=== PATIENT | male | born 1935 | race Caucasian/White ===

== ENCOUNTER → 2018-01-05 15:09 | Outpatient (CLI) | payer MEDICARE, SELFPAY ==
[2018-01-05 18:23] LABS: Hematocrit 39.6 % (40-54); Mean Corp Hgb Conc 32.8 g/gl (32-36); Mean Corpuscular Hgb 30.7 pg (27.0-32.0); Mean Corpuscular Volume 93.6 fL (80-94); Mean Platelet Vol. 9.6 fl (6.2-12.0); Platelet Count 322 K/mm3 (150-450); RBC Distribution Width CV 13.6 % (11.6-14.6); RBC Distribution Width SD 46.2 fl (35.1-43.9); Red Blood Count 4.23 M/mm3 (4.6-6.2); White Blood Count 6.2 K/mm3 (4.4-11.0)
[2018-01-05 18:47] LABS: Albumin, Serum 3.2 g/dL (3.2-5.0); BUN 24 mg/dL (7-18); BUN/Creat Ratio 11.8 RATIO (10-20); Calcium,Total 8.2 mg/dL (8.5-10.1); Chloride 107 mmol/L (98-107); Creatinine, Serum 2.04 mg/dL (0.70-1.30); EST Glomerular Filtration Rate 33 mL/min (>60); Est Glom Filt Rate - Afr Amer 40 mL/min (>60); Glucose 114 mg/dL (74-106); Potassium 4.3 mmol/L (3.5-5.1); Sodium Level 140 mmol/L (136-145)
[2018-01-05 18:53] LABS: Scan Indicated on CBC? Y/N NO
[2018-01-05 19:58] LABS: Vitamin D,25 Hydroxy 25.1 ng/mL (19.95-100.01)
== END ==
PROVIDERS: Family Provider Family Medicine; PCP Family Medicine; Visit Provider Internal Medicine Nephrology
DX: N18.3 Chronic kidney disease, stage 3 (moderate) (principal); E55.9 Vitamin D deficiency, unspecified; D64.9 Anemia, unspecified
CPT/HCPCS: 36415; 80069; 82306; 85027

== ENCOUNTER 2018-03-02 22:14 | Emergency (ER) | payer MEDICARE, SELFPAY ==
[2018-03-02 22:15] VITALS: BP 138/89; PULSE 122; RESP 16; TEMP 37.2; O2SAT 96; BMI 30.1
--- NOTE | 2018-03-02 23:07 | ED.DCSUM_ITS ---
- ER Visit Summary Date of Service: 03/02/18 Chief Complaint: [] Badillo catheter obstructed History of Present Illness: The patient is a 82 M stated tonight that his Badillo catheter got obstructed. He has not been able to drain into his leg bag. He has a chronically. He has a sensation like he needs to go because his bladder is filling. He has had this happen before. He has a chronic catheter. This catheter has not been changed for a month. Physical Examination: Vital signs reviewed General: Well-nourished well-developed Head: Normocephalic atraumatic Eyes: Pupils equal round and reactive to light extraocular movements intact ENT: TMs clear no hemotympanum no trauma Neck: Nontender full range of motion Cardiovascular: Regular cardiac rhythm no murmurs normal S1-S2 Respiratory: No distress clear to auscultation bilaterally chest nontender Abdomen: Soft nontender nondistended normal bowel sounds no masses Back: Nontender no CVA tenderness Extremities: Nontender active range of motion ?4 extremities no trauma Skin: Normal color no trauma Neuro alert oriented cranial nerves II through XII intact normal strength sensation reflexes Test Results: [] Emergency Department Course and Treatment: [] Badillo catheter was flushed. Was unsuccessful. It was then changed with good drainage. Patient will follow-up as an outpatient. Treatment Plan: [] Disposition: [] Impression: [] Badillo catheter obstruction This note was generated with [employer] dictation software. It may contain incorrect words, spelling, and punctuation that were not noted in review of the chart prior to signing ED Disposition - Plan for ED Patient: Disposition: Home or Assisted Living Chief Complaint: Badillo C/O Instructions: Discharge Instructions: Caring for Your Indwelling Urinary Catheter Referrals: Alex Pryor MD [STAFF PHYSICIAN] - Alex Gupta MD [Primary Care Provider] -
--- NOTE | 2018-03-02 23:07 | ED.DEP ---
ED Disposition - Plan for ED Patient: Disposition: Home or Assisted Living Chief Complaint: Badillo C/O Instructions: Discharge Instructions: Caring for Your Indwelling Urinary Catheter Referrals: Alex Gupta MD [Primary Care Provider] - Alex Pryor MD [STAFF PHYSICIAN] -
[2018-03-02 23:46] VITALS: RESP 18
--- NOTE | 2018-03-02 23:48 | ED.RN ---
PT DOESNT KNOW MEDS, FAMILY UNAWARE. UNABLE TO COMPLETE
[2018-03-03 00:03] VITALS: PULSE 122; O2SAT 97
== END 2018-03-03 00:04 | disposition home or self-care (01) ==
LOC: ED 23:27
PROVIDERS: Emergency Provider Emergency Medicine; Family Provider Family Medicine; PCP Family Medicine
DX: T83.091A Other mechanical complication of indwelling urethral catheter, initial encounter (principal); I25.10 Atherosclerotic heart disease of native coronary artery without angina pectoris; I10 Essential (primary) hypertension; Z87.440 Personal history of urinary (tract) infections; Z87.438 Personal history of other diseases of male genital organs; Z95.1 Presence of aortocoronary bypass graft; Z79.82 Long term (current) use of aspirin; Z79.899 Other long term (current) drug therapy
CPT/HCPCS: 51702; 99283

== ENCOUNTER → 2018-03-05 16:10 | Outpatient (CLI) | payer MEDICARE, SELFPAY ==
[2018-03-05 18:19] LABS: Anion Gap 8 (5-15); BUN 27 mg/dL (7-18); BUN/Creat Ratio 12.6 RATIO (10-20); Calcium,Total 8.3 mg/dL (8.5-10.1); Chloride 110 mmol/L (98-107); Cholesterol 107 mg/dL (200); Creatinine, Serum 2.15 mg/dL (0.70-1.30); EST Glomerular Filtration Rate 31 mL/min (>60); Est Glom Filt Rate - Afr Amer 38 mL/min (>60); Glucose 101 mg/dL (74-106); High Density Lipoprotein 38 mg/dL; Potassium 4.4 mmol/L (3.5-5.1); Sodium Level 142 mmol/L (136-145); Triglycerides 82 mg/dL; Very Low Density Lipoprotein 16 mg/dL (5-40)
== END ==
PROVIDERS: Family Provider Family Medicine; PCP Family Medicine; Visit Provider Family Medicine
DX: S37.009A Unspecified injury of unspecified kidney, initial encounter (principal); I10 Essential (primary) hypertension
CPT/HCPCS: 36415; 80048; 80061

== ENCOUNTER 2018-04-16 03:05 | Emergency (ER) | payer MEDICARE, SELFPAY ==
[2018-04-16 03:06] VITALS: BP 162/89; PULSE 88; RESP 16; TEMP 36.4; O2SAT 97; BMI 30.4
--- NOTE | 2018-04-16 03:30 | ED.VISSUMM ---
- ER Visit Summary Date of Service: 04/16/18 Chief Complaint: Badillo catheter not draining History of Present Illness: The patient is a 82 M presenting with his Badillo catheter not draining. states it stopped draining before bedtime. She has not noticed any blood or clots in the catheter. This has happened in the past with the last being approximately 1 month ago. That was the last time the catheter was changed. He has a history of chronic catheter. He denies other complaints. Physical Examination: Vitals are stable. Patient is afebrile. Alert no acute distress. HEENT exam is unremarkable. Neck is supple. Lungs are clear and equal bilaterally. Heart is regular rate and rhythm. Abdomen is soft suprapubic tenderness with no rebound or guarding. Extremities are unremarkable. Skin is warm and dry. No focal neurologic deficit. Remainder of exam is unremarkable. Emergency Department Course and Treatment: Badillo catheter was changed. He has improvement of his symptoms. He is advised to follow-up with Dr. Pantoja his urologist. Advised to return to the ED for worsening complaints. Disposition: Discharged home Impression: Badillo catheter change This note was generated with [employer] dictation software. It may contain incorrect words, spelling, and punctuation that were not noted in review of the chart prior to signing ED Disposition - Plan for ED Patient: Chief Complaint: Complaint Instructions: ED Catheter Care Badillo Referrals: Guido Pantoja MD [STAFF PHYSICIAN] - Alex Gupta MD [Primary Care Provider] -
--- NOTE | 2018-04-16 03:57 | ED.DEP ---
ED Disposition - Plan for ED Patient: Chief Complaint: Complaint Instructions: ED Catheter Care Badillo Referrals: Alex Gupta MD [Primary Care Provider] - Guido Pantoja MD [STAFF PHYSICIAN] -
[2018-04-16 04:23] VITALS: BP 101/63; PULSE 69; RESP 17; O2SAT 96
== END 2018-04-16 04:44 | disposition home or self-care (01) ==
LOC: ED 03:40
PROVIDERS: Emergency Provider Emergency Medicine; Family Provider Family Medicine; PCP Family Medicine
DX: Z46.6 Encounter for fitting and adjustment of urinary device (principal); I25.10 Atherosclerotic heart disease of native coronary artery without angina pectoris; I10 Essential (primary) hypertension; E78.00 Pure hypercholesterolemia, unspecified; N40.0 Benign prostatic hyperplasia without lower urinary tract symptoms; Z87.891 Personal history of nicotine dependence; Z79.82 Long term (current) use of aspirin; Z79.899 Other long term (current) drug therapy
CPT/HCPCS: 51702; 99283

== ENCOUNTER 2018-04-17 08:24 | Day surgery (SDC) | payer MEDICARE, SELFPAY ==
[2018-04-17] VITALS (12 sets, daily range): BP systolic 104–122; BP diastolic 61–83; PULSE 47–95; RESP 16–18; TEMP 36.1–36.8; O2SAT 16–100; BMI 29.6
[2018-04-17] MEDS: Cefazolin 2 GM in 0.9% Normal Saline 100 ML IV (10:18)
--- NOTE | 2018-04-17 10:51 | PCM.DC.URO ---
Discharge Diet: No Restrictions, Light diet - advance as tolerated Discharge Activity: Return to Normal Activity Call your doctor if your incision/area has: Continuous Slow Oozing, Sudden Increased Bleeding, Increased Pain/ Swelling, Increased Redness, Foul Smelling Discharge, Swelling at the incision site Allergies/Adverse Reactions: Allergies ciprofloxacin Allergy (Verified 04/16/18 03:08) Itching Medications to take at Discharge Aspirin [Aspirin, Baby] 81 mg PO DAILY@0800 04/22/17 Atorvastatin Calcium 40 mg PO QHS 04/22/17 Cholecalciferol (Vitamin D3) [Vitamin D3] 1,000 unit PO DAILY 04/22/17 Pantoprazole Sodium [Protonix] 20 mg PO DAILY 04/22/17 metoprolol tartrate 25 mg tablet 25 mg PO BID #60 tab 01/23/18 Primary Care Physician: Alex Gupta MD [Primary Care Provider] - Please Follow Up With: Guido Pantoja MD When: please call to make an appointment.
--- NOTE | 2018-04-17 10:57 | OP.PCM_ITS ---
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 I have sent the patient is see a general surgeon to repair this he is refused surgical repair I have explained to the patient that with his chronic obstruction he may end up losing function of this kidneys and may end up on dialysis which could cause significant morbidity and mortality. He has refused to have his hernias repaired. 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 Patient is aware of his refusal to undergo medical treatment is recommended. Also his family is aware of the patient's refusal to undergo recommended medical treatment. He does agree to undergo stent placement to alleviate the obstruction of both kidneys but I expanded him that this may only temporize the situation and he may end up causing permanent dialysis and damage his kidneys even with stents. 82-year-old male taken back to the operating room after smooth induction of anesthesia he was placed supine on the table penis and testicles were prepped and draped in usual sterile fashion on examination he is a very large left inguinal hernia coming down making the scrotum extremely large very difficult to do cystoscopy because of the situation. Went into the bladder with a 21 [place]ander rigid cystourethroscope to the urethra again had the having a fight the hernia the entire time to the procedure as the scope was running against a very large hernia protruding into the field. He did have bilateral hypertrophy of the prostate obstruction, the bladder was heavily trabeculated it is stent emanating from the right side this is grabbed and pulled out the meatus try to put a wire through it but is too stenotic and encrusted so then I went back into the bladder pulled up the stent and put a new wire up on the right side and over the wire place a new stent 6 New Zealander by 28 cm stent. Then inspected the bladder and was able to identify the left ureteral orifice wire went up and then went down into the hernia set back of the kidney along the stent was selected is a 28 cm stent and it would make the turn we will go the way to the kidney stent was left in place then on the left side going from the bladder down to the hernia sac and partially backed up and all the way to the kidney and no other longer stent put in. 1+ once both stents were in place draining the bladder and the patient will go home with a Badillo catheter again he was recommended he undergo repair of his large inguinal hernias this was discussed with the family. He will need a stent change about 6 months. Type of Anesthesia:: General Drains: b/l stents. - Admit VTE Documentation VTE Present on Admission: No VTE Mechan Device Prophylaxis: SCD's VTE Pharm Prophylaxis ordered?: No Reason prophylaxis not ordered:: Treatment Not Indicated
== END 2018-04-17 13:44 | disposition home or self-care (01) ==
LOC: SDC 08:26 → AC 08:27
PROVIDERS: Anesthesiology; Family Provider Family Medicine; PCP Family Medicine; Visit Provider Urology
PROC: (CPT 52332; principal; 2018-04-17 09:45)
DX: N13.5 Crossing vessel and stricture of ureter without hydronephrosis (principal); K40.90 Unilateral inguinal hernia, without obstruction or gangrene, not specified as recurrent; I12.9 Hypertensive chronic kidney disease with stage 1 through stage 4 chronic kidney disease, or unspecified chronic kidney disease; N40.1 Benign prostatic hyperplasia with lower urinary tract symptoms; N13.8 Other obstructive and reflux uropathy; N18.3 Chronic kidney disease, stage 3 (moderate); E78.00 Pure hypercholesterolemia, unspecified; Z79.899 Other long term (current) drug therapy; Z79.82 Long term (current) use of aspirin; Z95.1 Presence of aortocoronary bypass graft; I25.2 Old myocardial infarction; I47.1 Supraventricular tachycardia; Z87.891 Personal history of nicotine dependence; I51.9 Heart disease, unspecified; M19.90 Unspecified osteoarthritis, unspecified site
CPT/HCPCS: 00910; 52332; 36415; 76000; 84484; 93005; J7120; C1769; J2405

== ENCOUNTER 2018-05-15 03:57 | Emergency (ER) | payer MEDICARE, SELFPAY ==
[2018-05-15 03:58] VITALS: BP 158/75; PULSE 92; RESP 18; TEMP 36.9; O2SAT 96; BMI 29.9
--- NOTE | 2018-05-15 04:12 | ED.DEP ---
ED Disposition - Plan for ED Patient: Chief Complaint: Complaint Instructions: ED Catheter Care Badillo Referrals: Alex Gupta MD [Primary Care Provider] - Guido Pantoja MD [STAFF PHYSICIAN] -
[2018-05-15 04:24] LABS: Mucous, Urine 0 SEEN /hpf (<or=2+); Squamous Epithelial Cells - UA 0 SEEN /hpf (0-5)
[2018-05-15 04:26] LABS: Color, Urine Yellow (Yellow); Glucose, Dipstick Normal (Normal); Ketone-Dipstick Negative (Negative); Leukocyte Esterase-Dipstick 500 /ul (Negative); Nitrite-Dipstick Negative (Negative); Occult Blood-Urine 250 /ul (Negative); Protein-Dipstick 100 mg/dl (Negative); Specific Gravity, Urine 1.015 (1.002-1.030); Urine Bilirubin Dipstick Negative (Negative); Urine Clarity Cloudy (Clear); Urine Urobilinogen Normal (Normal)
--- NOTE | 2018-05-15 04:40 | ED.VISSUMM ---
- ER Visit Summary Date of Service: 05/15/18 Chief Complaint: Villa catheter not draining History of Present Illness: The patient is a 83 M presenting with his Villa catheter not draining. states she noted no urine in villa bag last night. She has not noticed any blood or clots in the catheter. This has happened in the past with the last being approximately 1 month ago. That was the last time the catheter was changed. He has a history of chronic catheter. He denies other complaints. Physical Examination: Vitals are stable. Patient is afebrile. Alert no acute distress. HEENT exam is unremarkable. Neck is supple. Lungs are clear and equal bilaterally. Heart is regular rate and rhythm. Abdomen is soft suprapubic tenderness with no rebound or guarding. Extremities are unremarkable. Skin is warm and dry. No focal neurologic deficit. Remainder of exam is unremarkable. Emergency Department Course and Treatment: Villa catheter was changed. He has improvement of his symptoms. Urine culture is sent. Urinalysis shows over 100 white blood cells. He is given Keflex and a prescription for Keflex. He is advised to follow-up with Dr. Pantoja his urologist. Advised to return to the ED for worsening complaints. Disposition: Discharged home Impression: Villa catheter change, UTI This note was generated with [employer] dictation software. It may contain incorrect words, spelling, and punctuation that were not noted in review of the chart prior to signing ED Disposition - Plan for ED Patient: Chief Complaint: Complaint Instructions: ED Catheter Care Villa, ED UTI Cystitis Male Prescriptions: Cephalexin [Keflex] 500 mg PO Q6 #40 capsule Referrals: uGido Pantoja MD [STAFF PHYSICIAN] - Alex Gupta MD [Primary Care Provider] -
[2018-05-15 04:49] LABS: Bacteria 3+ /hpf (None Seen); Red Blood Cells-Urine 0-5 SEEN /hpf (0-5); White Blood Cells >100 SEEN /hpf (0-5)
--- NOTE | 2018-05-15 04:50 | ED.DEP ---
ED Disposition - Plan for ED Patient: Chief Complaint: Complaint Instructions: ED Catheter Care Badillo, ED UTI Cystitis Male Prescriptions: Cephalexin [Keflex] 500 mg PO Q6 #40 capsule Referrals: Guido Pantoja MD [STAFF PHYSICIAN] - Alex Gupta MD [Primary Care Provider] -
[2018-05-15] MEDS: Cephalexin 250 MG Capsule 500 MG PO (04:53)
[2018-05-15 05:00] VITALS: RESP 18
--- NOTE | 2018-05-18 09:20 | ED.RN ---
PRESCRIPTIONS FOR BACTRIM DS AND MACROBID WERE CALLED INTO [facility]. PT WAS THEN NOTIFIED OF SAME.
== END 2018-05-15 05:01 | disposition home or self-care (01) ==
LOC: ED 04:18
PROVIDERS: Emergency Provider Emergency Medicine; Family Provider Family Medicine; PCP Family Medicine
DX: Z46.6 Encounter for fitting and adjustment of urinary device (principal); N39.0 Urinary tract infection, site not specified; K21.9 Gastro-esophageal reflux disease without esophagitis; I10 Essential (primary) hypertension; E78.00 Pure hypercholesterolemia, unspecified; Z79.82 Long term (current) use of aspirin; Z79.899 Other long term (current) drug therapy
CPT/HCPCS: 51702; 81001; 87077; 87086; 87088; 87186; 99284

== ENCOUNTER 2018-06-26 02:57 | Emergency (ER) | payer MEDICARE, SELFPAY ==
[2018-06-26 02:57] VITALS: BP 134/80; PULSE 71; RESP 20; TEMP 36.8; O2SAT 97; BMI 29.6
--- NOTE | 2018-06-26 03:30 | ED.VISSUMM ---
- ER Visit Summary Date of Service: 06/26/18 Chief Complaint: [] Catheter blocked History of Present Illness: The patient is a 83 M [] patient stated that his Badillo catheter got blocked tonight. He is not having any pain. It has been in for 2 months. He has a chronic Badillo catheter for last 2 years secondary to outlet obstruction. Comes in to have his Badillo catheter checked. Physical Examination: [] Vital signs reviewed General: Well-nourished well-developed Head: Normocephalic atraumatic Eyes: Pupils equal round and reactive to light extraocular movements intact ENT: TMs clear no hemotympanum no trauma Neck: Nontender full range of motion Cardiovascular: Regular rate rhythm no murmurs normal S1-S2 Respiratory: No distress clear to auscultation bilaterally chest nontender Abdomen: Soft nontender nondistended normal bowel sounds no masses Back: Nontender no CVA tenderness Extremities: Nontender active range of motion ?4 extremities no trauma Skin: Normal color no trauma Neuro alert oriented cranial nerves II through XII intact normal strength sensation reflexes Test Results: [] Emergency Department Course and Treatment: [] Badillo is blocked. It was removed and a new one was placed with good flow. He will be discharged Treatment Plan: [] Disposition: [] Impression: [] Badillo catheter obstruction This note was generated with [employer] dictation software. It may contain incorrect words, spelling, and punctuation that were not noted in review of the chart prior to signing ED Disposition - Plan for ED Patient: Chief Complaint: Badillo C/O Referrals: Alex Gupta MD [Primary Care Provider] -
--- NOTE | 2018-06-26 03:31 | ED.DEP ---
ED Disposition - Plan for ED Patient: Disposition: Home or Assisted Living Chief Complaint: Badillo C/O Instructions: Discharge Instructions: Caring for Your Indwelling Urinary Catheter Referrals: Alex Gupta MD [Primary Care Provider] -
[2018-06-26 03:48] VITALS: BP 134/80; PULSE 71; RESP 20; O2SAT 97
== END 2018-06-26 03:49 | disposition home or self-care (01) ==
PROVIDERS: Emergency Provider Emergency Medicine; Family Provider Family Medicine; PCP Family Medicine
DX: T83.098A Other mechanical complication of other urinary catheter, initial encounter (principal)
CPT/HCPCS: 51702; 99283

== ENCOUNTER 2018-08-19 00:53 | Emergency (ER) | payer MEDICARE, SELFPAY ==
[2018-08-19 00:54] VITALS: BP 130/53; PULSE 41; RESP 16; TEMP 36.4; O2SAT 96; BMI 33.6
--- NOTE | 2018-08-19 01:34 | ED.VISSUMM ---
- ER Visit Summary Date of Service: 08/19/18 Chief Complaint: Catheter not draining History of Present Illness: The patient is a 83 M who presents due to a Badillo catheter not draining. He has a chronic indwelling Badillo. Over the last 4 hours he complains of increasing suprapubic aching and pressure and has noted that his catheter is not been draining normally for the past 4 hours. He otherwise denies recent illness. No fevers nausea vomiting. Physical Examination: Afebrile bradycardic but vitals otherwise unremarkable Moist mucous membranes Heart regular Lungs clear Abdomen soft he has some mild suprapubic tenderness Alert Test Results: Not indicated Emergency Department Course and Treatment: Badillo catheter was changed. He has had about 600 cc of urine out. He feels much better. He will be discharged to follow-up with his urologist. Treatment Plan: [] Disposition: Discharge Impression: Badillo catheter malfunction and change This note was generated with [employer] dictation software. It may contain incorrect words, spelling, and punctuation that were not noted in review of the chart prior to signing ED Disposition - Plan for ED Patient: Chief Complaint: Badillo C/O Referrals: Alex Gupta MD [Primary Care Provider] -
--- NOTE | 2018-08-19 01:36 | ED.DEP ---
ED Disposition - Plan for ED Patient: Chief Complaint: Badillo C/O Instructions: ED Catheter Care Badillo Referrals: Alex Gupta MD [Primary Care Provider] -
[2018-08-19 02:08] VITALS: BP 136/82; PULSE 53; RESP 16; O2SAT 98
== END 2018-08-19 02:09 | disposition home or self-care (01) ==
PROVIDERS: Emergency Provider Emergency Medicine; Family Provider Family Medicine; PCP Family Medicine
DX: T83.098A Other mechanical complication of other urinary catheter, initial encounter (principal); N50.89 Other specified disorders of the male genital organs; K21.9 Gastro-esophageal reflux disease without esophagitis; I10 Essential (primary) hypertension; E78.00 Pure hypercholesterolemia, unspecified; Z79.82 Long term (current) use of aspirin; Z79.899 Other long term (current) drug therapy
CPT/HCPCS: 51702; 99283

== ENCOUNTER → 2018-09-07 16:14 | Outpatient (CLI) | payer MEDICARE, SELFPAY ==
[2018-09-07 17:38] LABS: Anion Gap 7 (5-15); BUN 20 mg/dL (7-18); BUN/Creat Ratio 9.2 RATIO (10-20); Chloride 109 mmol/L (98-107); Creatinine, Serum 2.18 mg/dL (0.70-1.30); EST Glomerular Filtration Rate 31 mL/min (>60); Est Glom Filt Rate - Afr Amer 37 mL/min (>60); Glucose 126 mg/dL (74-106); Potassium 4.2 mmol/L (3.5-5.1); Sodium Level 141 mmol/L (136-145)
== END ==
PROVIDERS: Family Provider Family Medicine; PCP Family Medicine; Visit Provider Family Medicine
DX: I10 Essential (primary) hypertension (principal)
CPT/HCPCS: 36415; 80048

== ENCOUNTER → 2018-09-28 17:24 | Outpatient (CLI) | payer MEDICARE, SELFPAY | PROVIDERS: Family Provider Family Medicine; PCP Family Medicine; Referring Provider Nurse Practitioner Adult Health; Visit Provider Nurse Practitioner Adult Health | DX: N32.89 Other specified disorders of bladder (principal) | CPT/HCPCS: 87077; 87086; 87088; 87186 ==

== ENCOUNTER 2018-10-28 10:11 | Day surgery (SDC) | payer MEDICARE, SELFPAY ==
[2018-10-22 14:06] VITALS: BMI 28.6
[2018-10-28] VITALS (7 sets, daily range): BP systolic 110–134; BP diastolic 56–74; PULSE 52–67; RESP 16–18; TEMP 36–36.4; O2SAT 96–99; BMI 28.6
[2018-10-28] MEDS: Cefazolin 2 GM in 0.9% Normal Saline 100 ML IV (12:37)
--- NOTE | 2018-10-28 13:17 | DCINST_ITS ---
Discharge Activity: Return to Normal Activity Allergies/Adverse Reactions: Allergies ciprofloxacin Allergy (Verified 10/22/18 14:14) Itching Medications to take at Discharge Atorvastatin Calcium 40 mg PO QHS 04/22/17 Cholecalciferol (Vitamin D3) [Vitamin D3] 1,000 unit PO DAILY 04/22/17 Pantoprazole Sodium [Protonix] 20 mg PO DAILY 04/22/17 Iron Polysaccharide Complex [Ferrex 150] 150 mg PO DAILYCM 10/21/18 Metoprolol Tartrate [Lopressor (beta mao)] 25 mg PO BID 10/21/18 Tamsulosin HCl [Flomax] 0.4 mg PO DAILY 10/21/18 Primary Care Physician: Alex Gupta MD [Primary Care Provider] - Test Results: Test results from this visit will be discussed in further detail at your follow- up appointment, if applicable. Please Follow Up With: Guido Pantoja MD When: in 2 weeks, please call to make an appointment.
--- NOTE | 2018-10-28 13:17 | PCM.OPRPT ---
Report of Operation Date of Procedure: 10/28/18 Pre-Operative Diagnosis: Bilateral hydronephrosis and obstruction of the kidneys secondary to large inguinal herniation Post-Operative Diagnosis: Same Surgery/Procedure Performed:: Cystoscopy right stent change, left stent change. 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 Today he returns to the operating room for a 6-month stent change in a 6-month catheter change at the same time. Patient was taken back to the operating room at the smooth induction of general anesthesia was placed supine on the table in dorsal lithotomy position, the penis and testicles are prepped and draped in usual sterile fashion, he had a very large inguinal hernia protruding into the very large scrotum making it quite difficult to do cystoscopy. We went into the urethra with a 21 Israeli rigid cystourethroscope the entire length the urethra is normal the prostate was very large obstructive prostate, I then identified the right ureteral orifice grabbed a stent pulled out the meatus try to wipe put a wire through both to encrusted so then took it all the way up went back in the bladder and then cannulated the right ureteral orifice and advanced this wire up to the kidney and then place a stent on the right side. Once a stent was placed in the right side then we went to the left side the left side was even more difficult the ureter goes down into this inguinal hernia and then back up into the kidney I was able to grab the existing stent pulled out the meatus then went back into the bladder very difficult angle to work with so I did use a 70 degree lens and a L bronze bridge to the deflect the wire right into the ureter at a very weird angle I advanced a wire through this 60 the wire go down to the scrotum the back up to the kidneys then over the wire advanced a 6 Israeli by 28 cm stent once a stent was in good position and pulled the wire the stent coiled in the bladder but it was going down to the inguinal area this allowed the ureter to stay open and drain on that side we then put a catheter into the bladder patient anesthetic was reversed and a quick see him in a few weeks for checkup he will need another stent change about 6 months. Type of Anesthesia:: General Drains: left and right stent - Admit VTE Documentation VTE Present on Admission: No
== END 2018-10-28 15:35 | disposition home or self-care (01) ==
LOC: SDC 10:12 → AC 10:15
PROVIDERS: Family Provider Family Medicine; PCP Family Medicine; Referring Provider Urology; Visit Provider Urology
PROC: (CPT 52332; principal; 2018-10-28 12:10)
DX: N13.30 Unspecified hydronephrosis (principal); K40.90 Unilateral inguinal hernia, without obstruction or gangrene, not specified as recurrent; N18.3 Chronic kidney disease, stage 3 (moderate); K21.9 Gastro-esophageal reflux disease without esophagitis; E78.00 Pure hypercholesterolemia, unspecified; I12.9 Hypertensive chronic kidney disease with stage 1 through stage 4 chronic kidney disease, or unspecified chronic kidney disease; I47.1 Supraventricular tachycardia; I25.2 Old myocardial infarction; I25.10 Atherosclerotic heart disease of native coronary artery without angina pectoris; Z95.1 Presence of aortocoronary bypass graft; Z79.899 Other long term (current) drug therapy; M19.90 Unspecified osteoarthritis, unspecified site; N40.1 Benign prostatic hyperplasia with lower urinary tract symptoms; R33.8 Other retention of urine
CPT/HCPCS: 52332; 76000; J7120; C1769; J2405

== ENCOUNTER 2019-01-12 23:21 | Emergency (ER) | payer MEDICARE, SELFPAY ==
[2018-10-28 10:42] VITALS: BMI 28.6
[2019-01-12 23:22] VITALS: BP 142/86; PULSE 72; RESP 18; TEMP 36.5; O2SAT 97; BMI 31.8
--- NOTE | 2019-01-12 23:41 | ED.RN ---
repositioned catheter into bladder fully. immediate drainage and pain relief. 400 ml removed from leg bag, still draining.
--- NOTE | 2019-01-12 23:50 | ED.DEP ---
ED Disposition - Plan for ED Patient: Instructions: Discharge Instructions: Caring for Your Indwelling Urinary Catheter Referrals: Alex Gupta MD [Primary Care Provider] -
--- NOTE | 2019-01-13 00:06 | ED.VISSUMM ---
- ER Visit Summary Date of Service: 01/13/19 Chief Complaint: Badillo catheter problem History of Present Illness: The patient is a 83 M presenting with Badillo catheter problem. Patient had a Badillo catheter placed as an outpatient today. He states it was not draining at home tonight. He denies other complaints. Physical Examination: Vitals are stable. Patient is afebrile. Alert no acute distress. HEENT exam is unremarkable. Neck is supple. Lungs are clear and equal bilaterally. Heart is regular rate and rhythm. Abdomen is soft nontender nondistended. Extremities are unremarkable. Skin is warm and dry. Remainder of exam is unremarkable. Emergency Department Course and Treatment: On arrival patient's Badillo catheter was repositioned by nursing. It is now draining clear yellow urine. He has no blood in the Badillo bag. He feels improved. He is advised to follow-up with his urologist. Advised return to ED for worsening complaints. Disposition: Discharge home Impression: Badillo catheter problem This note was generated with [employer] dictation software. It may contain incorrect words, spelling, and punctuation that were not noted in review of the chart prior to signing ED Disposition - Plan for ED Patient: Instructions: Discharge Instructions: Caring for Your Indwelling Urinary Catheter Referrals: Alex Gupta MD [Primary Care Provider] -
== END 2019-01-13 00:15 | disposition home or self-care (01) ==
LOC: ED 01-13 00:11
PROVIDERS: Emergency Provider Emergency Medicine; Family Provider Family Medicine; PCP Family Medicine
DX: Z46.6 Encounter for fitting and adjustment of urinary device (principal); I12.9 Hypertensive chronic kidney disease with stage 1 through stage 4 chronic kidney disease, or unspecified chronic kidney disease; N18.9 Chronic kidney disease, unspecified; E78.00 Pure hypercholesterolemia, unspecified; Z79.899 Other long term (current) drug therapy
CPT/HCPCS: 99282

== ENCOUNTER 2019-03-02 03:54 | Emergency (ER) | payer MEDICARE, SELFPAY ==
[2019-03-02 03:55] VITALS: BP 148/82; PULSE 81; RESP 18; TEMP 36.6; O2SAT 97; BMI 29.1
[2019-03-02 04:00] VITALS: RESP 18
--- NOTE | 2019-03-02 04:05 | ED.VISSUMM ---
- ER Visit Summary Date of Service: 03/02/19 Chief Complaint: Badillo catheter not draining History of Present Illness: The patient is a 83 M with a chronic indwelling Badillo catheter who presents because it is not been draining. Patient states it is been since he went to bed since it last drained urine, which was several hours ago. Patient denies any pain but states it annoys him. He denies any fever, abdominal pain, blood in his urine. He states the Badillo catheter gets clogged once in a while. Physical Examination: Patient is afebrile and hemodynamically stable. Well-nourished well-developed sitting in bed in no distress. Abdomen is soft and nontender. Patient has a very large edematous scrotum with erythema along the right intertriginous region. Badillo catheter is inserted into the penis without any purulent drainage or blood at the urethral meatus. The drainage bag is empty. Remainder of exam is unremarkable. Test Results: Abnormal Lab Results 03/02/19 04:20 Urine Color Yellow Urine Clarity Cloudy Urine pH 8.0 Ur Specific [place] 1.010 Urine Protein 100 H Urine Glucose (UA) Normal Urine Ketones Negative Urine Occult Blood 250 H Urine Nitrite Negative Urine Bilirubin Negative Urine Urobilinogen Normal Ur Leukocyte Esterase 500 H Urine RBC 10-25 SEEN Urine WBC >100 SEEN Ur Squamous Epith Cells 0 SEEN Urine Bacteria 0 SEEN Urine Mucus 0 SEEN Medications Given Discontinued Medications Cephalexin (Keflex) 500 mg PO X1 ONE Stop: 03/02/19 05:03 Last Admin: 03/02/19 05:09 Dose: 500 mg Emergency Department Course and Treatment: Nursing staff attempted to flush the Badillo catheter, however they were unable to pass any sterile saline through the Badillo. Thus it was replaced and a large volume of cloudy yellow urine was drained easily. Patient instantly felt much better. Because of the areas of intertrigo between his scrotum and thighs, he was prescribed nystatin powder. Urinalysis was positive for UTI in the urine that had been retained in his bladder. Patient may have chronic bacteriuria and pyuria given the chronic indwelling Badillo, however because of the Badillo catheter obstruction in conjunction with the positive urinalysis, it was treated with Keflex dosed for complicated UTI. Patient was discharged home with return precautions. Treatment Plan: [] Disposition: [] Impression: Badillo catheter obstruction, Badillo catheter replacement, complicated UTI, inguinal intertrigo This note was generated with [employer] dictation software. It may contain incorrect words, spelling, and punctuation that were not noted in review of the chart prior to signing ED Disposition - Plan for ED Patient: Disposition: Home or Assisted Living Instructions: ED Catheter Care Badillo, ED Candidiasis Cutaneous, ED UTI Cystitis Male Prescriptions: Cephalexin [Keflex] 500 mg PO Q6 #28 cap Nystatin Powder [Mycostatin Powder] 1 applic TOPICAL BID 14 Days #1 bottle Referrals: Alex Gputa MD [Primary Care Provider] - 3-5 Days if not improving Additional Instructions: Your Badillo catheter was replaced. The urine that had been trapped in your bladder tested positive for infection. Please take the antibiotic 4 times daily for 1 week. You have also been prescribed nystatin powder to use in the creases between your groin and your thighs to help with the yeast infection. Follow-up with your doctor in 2 weeks if you are not seeing improvement. If you have any worsening of your condition or any new concerning symptoms, please return immediately to the emergency department for another evaluation.
--- NOTE | 2019-03-02 04:24 | ED.RN ---
ATTEMPTED TO FLUSH GERMAIN, UNABLE TO FLUSH. DR. ZHONG NOTIFIED. NEW GERMAIN INSERTED.
[2019-03-02 04:29] LABS: Bacteria 0 SEEN /hpf (None Seen); Mucous, Urine 0 SEEN /hpf (<or=2+); Squamous Epithelial Cells - UA 0 SEEN /hpf (0-5)
[2019-03-02 04:47] LABS: Color, Urine Yellow (Yellow); Glucose, Dipstick Normal (Normal); Ketone-Dipstick Negative (Negative); Leukocyte Esterase-Dipstick 500 /ul (Negative); Nitrite-Dipstick Negative (Negative); Occult Blood-Urine 250 /ul (Negative); Protein-Dipstick 100 mg/dl (Negative); Urine Bilirubin Dipstick Negative (Negative); Urine Clarity Cloudy (Clear); Urine Urobilinogen Normal (Normal)
[2019-03-02 04:54] LABS: Red Blood Cells-Urine 10-25 SEEN /hpf (0-5); White Blood Cells >100 SEEN /hpf (0-5)
[2019-03-02] MEDS: Cephalexin 250 MG Capsule 500 MG PO (05:09)
[2019-03-02 05:12] VITALS: BP 119/68; PULSE 79; RESP 16; TEMP 36.8; O2SAT 97
[2019-03-02 05:14] VITALS: BP 119/68; PULSE 79; RESP 16; O2SAT 97
== END 2019-03-02 05:26 | disposition home or self-care (01) ==
PROVIDERS: Emergency Provider Emergency Medicine; Family Provider Family Medicine; PCP Family Medicine
DX: N39.0 Urinary tract infection, site not specified (principal); T83.098A Other mechanical complication of other urinary catheter, initial encounter; Y73.8 Miscellaneous gastroenterology and urology devices associated with adverse incidents, not elsewhere classified; L30.4 Erythema intertrigo
CPT/HCPCS: 51702; 81001; 87077; 87086; 87088; 87186; 99283

== ENCOUNTER → 2019-03-03 14:50 | Outpatient (CLI) | payer MEDICARE, SELFPAY ==
[2019-03-02 03:55] VITALS: BMI 29.1
[2019-03-03 16:41] LABS: Anion Gap 6 (5-15); BUN 23 mg/dL (7-18); BUN/Creat Ratio 10.8 RATIO (10-20); Calcium,Total 7.8 mg/dL (8.5-10.1); Chloride 111 mmol/L (98-107); Cholesterol 143 mg/dL (200); Creatinine, Serum 2.13 mg/dL (0.70-1.30); EST Glomerular Filtration Rate 32 mL/min (>60); Est Glom Filt Rate - Afr Amer 38 mL/min (>60); Glucose 127 mg/dL (74-106); High Density Lipoprotein 39 mg/dL; PSA,Total - Annual Screen 5.86 ng/mL (0.00-4.00); Potassium 4.3 mmol/L (3.5-5.1); Sodium Level 140 mmol/L (136-145); Triglycerides 87 mg/dL; Very Low Density Lipoprotein 17 mg/dL (5-40)
[2019-03-03 19:37] LABS: Vitamin D,25 Hydroxy 32.9 ng/mL (29.95-100.01)
== END ==
PROVIDERS: Family Provider Family Medicine; PCP Family Medicine; Referring Provider Family Medicine; Visit Provider Family Medicine
DX: Z00.00 Encounter for general adult medical examination without abnormal findings (principal); E55.9 Vitamin D deficiency, unspecified; Z12.5 Encounter for screening for malignant neoplasm of prostate
CPT/HCPCS: 36415; 80048; 80061; 82306; 84153; G0103

== ENCOUNTER 2019-06-04 05:57 | Day surgery (SDC) | payer MEDICARE, SELFPAY ==
[2019-04-28 14:13] VITALS: BMI 28.0
[2019-06-04] VITALS (8 sets, daily range): BP systolic 88–106; BP diastolic 59–65; PULSE 65–70; RESP 14–16; TEMP 36.2–36.4; O2SAT 91–96; BMI 28.1
--- NOTE | 2019-06-04 07:26 | PCM.DC.URO ---
Discharge Diet: Light diet - advance as tolerated Discharge Activity: Return to Normal Activity Call your doctor if your incision/area has: Sudden Increased Bleeding Call your doctor if you observe: Fever of 101 or Higher Suture Line Care: Avoid Pulling/Pushing, Avoid Pinching/Bending Catheter: Badillo to leg bag, Badillo to large bag Drain: [place] Allergies/Adverse Reactions: Allergies ciprofloxacin Allergy (Verified 06/04/19 06:16) Itching Medications to take at Discharge Atorvastatin Calcium 40 mg PO QHS 04/22/17 Cholecalciferol (Vitamin D3) [Vitamin D3] 1,000 unit PO DAILY 04/22/17 Pantoprazole Sodium [Protonix] 20 mg PO DAILY 04/22/17 Iron Polysaccharide Complex [Ferrex 150] 150 mg PO DAILYCM 10/21/18 metoprolol tartrate 25 mg tablet 25 mg PO BID #180 tab 02/01/19 Cephalexin [Keflex] 500 mg PO Q8 #15 cap 06/04/19 The following prescriptions were given: Cephalexin [Keflex] 500 mg PO Q8 #15 cap Prescription Printed Primary Care Physician: Alex Gupta MD [Primary Care Provider] - Test Results: Test results from this visit will be discussed in further detail at your follow-up appointment, if applicable. Please Follow Up With: Guido Pantoja MD When: FOLLOW UP IN 6 MONTHS.
[2019-06-04] MEDS: Cefazolin 2 GM in 0.9% Normal Saline 100 ML IV (07:27)
[2019-06-04] MEDS: Lubricating Jelly 60 GM Tube 30 GM TOPICAL (07:49)
--- NOTE | 2019-06-04 07:59 | PCM.OPRPT ---
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 Chronic stents need to be changed. Post-Operative Diagnosis: The same Surgery/Procedure Performed:: Cystoscopy and bilateral stent changes bilateral retrograde pyelograms and interpretation of fluoroscopic images Description of Surgical Findings:: 84-year-old male who has a history of a very large retroperitoneal hernia this is causing herniation and an angulation of the ureter on the left side with chronic hydronephrosis we have tried to manage this now with chronic stents on the left side and also the right side is involved but not as much. He has had stents now for 6 months he is due for another change. He is refused surgery to repair the large hernia. He also has BPH with obstruction and urinary retention is refused surgery for his prostate and at this point probably has chronic retention. So today we plan to do a cystoscopy and bilateral stent changes will put a catheter back in at the end of the case. 84-year-old male was taken back to the OR 3, he underwent sedation and MAC local with anesthesia with Dr. Laura. He was placed supine on the table and after sedation we remove the Badillo catheter was in place and we took off the large depends. We then moved him down on the table put his legs in stirrups making sure he was properly positioned and padded. After putting the legs in stirrups on exam he can see the uncircumcised penis was normal he had a very large scrotum on the left side with a retroperitoneal hernia. He is refused surgical repair of this. Herniating into the scrotum and also some on the right side. This is a chronic herniation after the penis and testicles are prepped and draped in usual sterile fashion I then went into the urethra with a 21 Maur[place] rigid cystourethroscope using a 30 degree lens. The entire length urethra was normal meatus was normal pendulous urethra normal bulbar urethra is normal I then turned into the prostate prostate had significant obstruction bilaterally and a very large high riding bladder neck once inside the bladder identified the left stent as emanating from the patient's left side. I grabbed the existing stent and pulled out the meatus was able to get a wire through the stent fortunately and then was unable to get the wire to go into the ureter and coiled down into the herniation and then backed up very unusual position for the stent as it angled down into the hernia I was going into the patient's scrotum on the left side once the wire was in place and I pulled the stent over the wire backloaded off then very carefully advanced a new stent it was a 6 Mauritian by 28 cm stent on the left side pushes stent and left the string on the stent and then once a stent with good position and pulled the wire and then cut the string try to position the stent with a string but the string coiled and then pulled the stent out further so then I had to cut the string off advanced a wire to the stent again this was done from the meatus fortunately the stent did not come out of the ureteral orifice and went up on the left side and back back down into the herniation sac and then under direct visualization I advanced the stent into the bladder and the stent went into the ureter on the left side and then once stent was a good position I pulled the wire and the stent coiled in the bladder and in the hernia sac stent does not reach the kidney because of the large herniation. Then I went into the bladder and grabbed the existing stent on the right side I pulled out the meatus put a wire through it initially the wire would go into the first coil and is going to the middle of the stent but would not go past the second coil as it is completely encrusted tried several times to get the wire through but it was not able to. I then put a snap in the stent and then the stent fell out on the right side fortunately is able to find the ureteral orifice it was a lot of bullous edema around the orifice was able to identify it put a wire and then advanced a wire up into the right kidney over the wire in place [place] catheter rigid retrograde pyelogram and then once in position then I put the wire back up and then advanced a 6 Mauritian by 28 cm stent on that right side once a stent was in good position I pulled the wire the stent coiled in the kidney bladder good position. I then removed the cystoscope we then placed a 16 Mauritian catheter into the bladder to a leg bag. The patient was then taken back to PACU in stable condition he will be discharged home with 5 days of Keflex as a prophylactic against an infection and he will go home with a catheter we can see him in 6 months in the office and plan for another stent change in about 6 months. I will go talk to the family regarding the findings. Type of Anesthesia:: General Anesthesiologist: Abran Laura Drains: stent bilateral 6fr x 28cm Estimated Blood Loss (mL): none Fluids Replaced: none - Complications none - Admit VTE Documentation VTE Present on Admission: No VTE Mechan Device Prophylaxis: SCD's
--- NOTE | 2019-06-04 09:57 | SUR.PHASEII ---
patient and family notified confirmed bed bug found on patient bed. informed to notify vicky.
--- NOTE | 2019-06-04 09:58 | SUR.PHASEII ---
when assisting pt with getting dressed a bed bug was seen crawling away from the patient. it was collected in a specimen cup. charge nurse notified. environmental services notified.
--- NOTE | 2019-06-07 07:37 | HP.PCM_ITS ---
History and Physical Date of Admission: 06/04/19 84-year-old male here for villa catheter change. Last changed 03/02/19 in ER when it was obstructed. He has a poorly functioning large bladder, large prostate causing obstruction, has chronic villa catheter, bilateral renal obstruction from very large inguinal hernias, chronic ureteral stents. Stents were last changed 10/28/19, plan is to change them every 6 mos. As for the villa, he has agreed to having it changed every 2 mos. ALLERGIES: None MEDICATIONS: Atorvastatin Calcium 40 mg tablet Ferrex 150 Metoprolol Tartrate 25 mg tablet Pantoprazole Sodium Vitamin D3 PSH: Cysto Remove Stent FB Com - 11/16/2016 Cystoscopy Insert Stent, Right - 10/28/2018, Left - 10/28/2018, 04/17/2018, 10/10/2017, 2017 Insert Bladder Cath; Complex - 07/21/2017, 05/19/2017 PSH Notes: Pt has not had a colonoscopy NON- PSH: Coronary Artery Bypass Grafting Patient documented to have received pneumococcal vaccination Pneumococcal Vaccine Admin PMH: Benign prostatic hyperplasia with lower urinary tract symptoms - 09/22/2017, - 07/21/2017, - 05/19/2017, - 2016, - 2016 Other hydronephrosis - 09/22/2017, - 07/21/2017, - 05/19/2017, - 2016, - 2016 Other retention of urine - 09/22/2017, - 07/21/2017, - 05/19/2017, - 2016, - 2016 Frequency of micturition NON- PMH: Essential (primary) hypertension Heart disease, unspecified Unspecified hearing loss, unspecified ear Unspecified osteoarthritis, unspecified site FAMILY HISTORY: None SOCIAL HISTORY: Marital Status: Preferred Language: Kittitian; Ethnicity: Not Or ; Race: White Current Smoking Status: Patient has never smoked. Does not use smokeless tobacco. Has never drank. Does not use drugs. Drinks 1 caffeinated drink per day. Has not had a blood transfusion. REVIEW OF SYSTEMS: Constitutional: Patient denies fever and chills. VITAL SIGNS: 04/27/2019 03:28 PM Weight 180 lb / 81.65 kg Height 69 in / 175.26 cm BP 128/78 mmHg BMI 26.6 kg/m? MULTI-SYSTEM PHYSICAL EXAMINATION: Notes: Frail elderly male. No distress. Urine in leg bag is yellow, cloudy. PAST DATA REVIEWED: Source Of History: Patient Records Review: Previous Patient Records PROCEDURES: Catheter / SP Tube - 21403 Simple Villa Catheterization A 18 [place] Villa catheter was inserted into the bladder using sterile technique. The patient was taught routine catheter care. A leg bag was connected. ASSESSMENT: ICD-10 Details 1 : Other retention of urine - R33.8 2 Other hydronephrosis - N13.39 PLAN: Document Letter(s): Created for Patient: Clinical Summary Notes: Due for cysto bilat ureteral stent change, that will be scheduled.
== END 2019-06-04 10:01 | disposition home or self-care (01) ==
LOC: SDC 05:59 → AC 06:01
PROVIDERS: Family Provider Family Medicine; PCP Family Medicine; Referring Provider Urology; Visit Provider Urology
PROC: (CPT 910; principal; 2019-06-04 07:20)
DX: K45.8 Other specified abdominal hernia without obstruction or gangrene (principal); E78.00 Pure hypercholesterolemia, unspecified; K21.9 Gastro-esophageal reflux disease without esophagitis; Z79.899 Other long term (current) drug therapy; I25.2 Old myocardial infarction; I10 Essential (primary) hypertension; Z87.891 Personal history of nicotine dependence; N40.1 Benign prostatic hyperplasia with lower urinary tract symptoms; N13.8 Other obstructive and reflux uropathy; M19.90 Unspecified osteoarthritis, unspecified site; I25.10 Atherosclerotic heart disease of native coronary artery without angina pectoris; N13.39 Other hydronephrosis
CPT/HCPCS: 00910; 52332; 76000; J7120; C1769; C2625; J2405

== ENCOUNTER 2019-06-05 05:20 | Emergency (ER) | payer MEDICARE, SELFPAY ==
[2019-06-04 06:18] VITALS: BMI 28.1
[2019-06-05 05:21] VITALS: BP 152/82; PULSE 55; RESP 18; TEMP 36.6; O2SAT 95; BMI 28.1
--- NOTE | 2019-06-05 05:39 | ED.VISSUMM ---
- ER Visit Summary Date of Service: 06/05/19 Chief Complaint: Badillo fell out History of Present Illness: The patient is a 84 M who presents because his Badillo fell out. He has had an indwelling Badillo for many years. He complains of suprapubic pressure over the last couple of hours. Badillo catheter was placed prior to my evaluation and he already had significant relief. Physical Examination: Afebrile vitals unremarkable No distress Heart regular rate and rhythm Lungs clear Abdomen soft Alert Test Results: Not indicated Emergency Department Course and Treatment: Badillo was replaced without any immediate complication. Patient had about 800 cc of light yellow urine out. He has no further complaints. He was discharged to follow-up with urology as needed. Treatment Plan: [] Disposition: Discharge Impression: Badillo placement This note was generated with [employer] dictation software. It may contain incorrect words, spelling, and punctuation that were not noted in review of the chart prior to signing ED Disposition - Plan for ED Patient: Referrals: Alex Gupta MD [Primary Care Provider] -
--- NOTE | 2019-06-05 05:41 | ED.DEP ---
ED Disposition - Plan for ED Patient: Instructions: Badillo Catheter, Care Referrals: Alex Gupta MD [Primary Care Provider] -
== END 2019-06-05 05:56 | disposition home or self-care (01) ==
LOC: ED 05:46
PROVIDERS: Emergency Provider Emergency Medicine; Family Provider Family Medicine; PCP Family Medicine
DX: Z46.6 Encounter for fitting and adjustment of urinary device (principal); K21.9 Gastro-esophageal reflux disease without esophagitis; I10 Essential (primary) hypertension; E78.00 Pure hypercholesterolemia, unspecified; Z79.899 Other long term (current) drug therapy
CPT/HCPCS: 51702; 99284

== ENCOUNTER 2019-07-13 17:50 | Emergency (ER) | payer MEDICARE, SELFPAY ==
[2019-07-13 17:51] VITALS: BP 134/75; PULSE 44; RESP 16; TEMP 35.6; BMI 27.4
--- NOTE | 2019-07-13 17:59 | ED.DCSUM_ITS ---
History of Present Illness Chief Complaint: Ear Problem Informant: Patient, Significant Other Onset: Today Context: Sudden Onset Timing: Continuous Quality: Cotton tip from Q-tip left auditory canal Location: Left auditory canal Current Severity: Mild Maximum Severity: Mild Worsened by: Decreased hearing left ear Relieved by: Nothing Associated Symptoms: Decreased hearing Narrative: Patient is an elderly male presents because he believes there is a foreign body in his left auditory canal. He believes it is a cotton Q-tip. He does report decreased hearing. states his hearing is poor at baseline. He has no other complaints Prior similar symptoms: No Recent Illness/Hospitalization: No - Past Medical History (1) Atherosclerotic heart disease of [place] coronary artery without angina pectoris Status: Chronic Comment: CABG x1- SILVEIRA to LAD off pump @ [facility] 02/06/12 (2) Essential (primary) hypertension Status: Chronic (3) History of PSVT (paroxysmal supraventricular tachycardia) Status: Chronic (4) half-way use of drug Status: Chronic (5) Nonsustained paroxysmal ventricular tachycardia Status: Chronic (6) Pure hypercholesterolemia Status: Chronic Past Medical History - Allergies and Home Meds Allergies/Adverse Reactions: Allergies ciprofloxacin Allergy (Verified 06/05/19 05:24) Itching Primary Care Physician: Alex Gupta MD [Primary Care Provider] - Prior records reviewed: Yes Surgical History: coronary bypass surgery Lives: Spouse/ Significant Other Smoking Status: Former smoker Alcohol: None Drugs: None - Family History Maternal Family History: Family History (Last Reviewed 04/28/19 @ 14:16 by Kelley Cobb) Father COPD (chronic obstructive pulmonary disease) Mother No problems noted. Family History: Reports: No pertinent history Review of Systems General: Denies: Chills, Fever, Malaise, Subjective, Sweats Eyes: Denies: Visual changes - bilaterally, Blurred Vision - bilaterally ENT: Denies: Left ear pain - Foreign body left auditory canal, Rhinorrhea, Sore throat Gastrointestinal: Denies: Nausea, Vomiting Musculoskeletal: Denies: Myalgias, Arthralgias, Neck pain, Back pain, Swelling, Extremity Pain, -, - Neurological: Denies: Headache Allergy: Denies: Uticaria, Swelling of the mouth, Swelling of the tongue Physical Exam Vital Signs/Narrative: Vital Signs Temp Pulse Resp BP 07/13/19 17:51 96.0 F L 44 L 16 134/75 H Inital Vital Signs reviewed: Yes General: Well nourished, Well developed, No Acute Distress Head: Normocephalic, Atraumatic Eyes: Perrl, EOMI. Negative for: Pale conjunctiva, Scleral icterus ENT: Moist mucous membranes, No rhinorrhea. Negative for: TM's clear - Unable to visualize left TM because the left auditory canal is impacted with cerumen Neck: Supple, Nontender Skin: Normal color, No rash, Trauma - There is evidence of trauma right auditory canal secondary to Q-tip. There is no evidence of infection. Negative for: Cyanosis, Diaphoresis, Jaundice Neurological: Alert, Oriented x3, Cranial nerves II-XII grossly intact, Normal Strength, Normal Sensation, - - Patient is hard of hearing Psychological: Normal affect, Normal Mood Diagnostic/Tx/Re-eval - Medical Decision Making Debrox left auditory canal and irrigate to remove cerumen impaction Cerumen impaction resolved after Debrox and irrigation by nurse. ED Disposition - Plan for ED Patient: Disposition: Home or Assisted Living Diagnosis: Impacted cerumen, left ear Instructions: EAR WAX, Treated Referrals: Alex Gupta MD [Primary Care Provider] - As Needed
[2019-07-13] MEDS: Carbamide Peroxide 15 ML Bottle 5 DRP OTIC (18:26)
[2019-07-13 20:09] VITALS: RESP 16
== END 2019-07-13 20:10 | disposition home or self-care (01) ==
PROVIDERS: Emergency Provider Emergency Medicine; Family Provider Family Medicine; PCP Family Medicine
DX: H61.22 Impacted cerumen, left ear (principal); I25.10 Atherosclerotic heart disease of native coronary artery without angina pectoris; I10 Essential (primary) hypertension; I47.1 Supraventricular tachycardia; E78.00 Pure hypercholesterolemia, unspecified; Z95.1 Presence of aortocoronary bypass graft; Z79.899 Other long term (current) drug therapy; Z87.891 Personal history of nicotine dependence
CPT/HCPCS: 99283

== ENCOUNTER 2019-08-03 22:25 | Emergency (ER) | payer MEDICARE, SELFPAY ==
[2019-08-03 22:26] VITALS: PULSE 65; RESP 18; TEMP 36.6; O2SAT 95; BMI 27.3
--- NOTE | 2019-08-03 23:32 | ED.DCSUM_ITS ---
- ER Visit Summary Date of Service: 08/03/19 Chief Complaint: [Badillo catheter not functioning] History of Present Illness: The patient is a 84 M [presents to the emergency department with nonfunctioning Badillo catheter. Patient states that he had his catheter changed in his urologist office today and has not had anything draining from the catheter. Patient states that every time he has a changed in the office he has to come to the emergency department to have it replaced. Patient denies any fever or cough. Patient denies any abdominal pain. With history of coronary artery disease, hypertension, high cholesterol, history of SVT, and history of chronic renal failure.] Physical Examination: [HEENT-PERRLA, EOMI. Cranial nerves II through XII grossly intact. TMs clear. Mucous membranes moist. No adenopathy. Cardiovascular-regular rate and rhythm without murmur or ectopy Lungs-clear to auscultation, chest wall stable without crepitus or subcu emphysema Abdomen-normoactive bowel sounds, soft. Patient has some mild tenderness over the suprapubic region. She has very enlarged scrotum which patient states is chronic. There is no urine noted in the Badillo bag. Extremities-intact ?4, normal range of motion, normal pulses, atraumatic] Test Results: [Bladder scan initially obtained showed only 160 cc.] Emergency Department Course and Treatment: [New Badillo catheter was placed and immediately over 600 cc of urine flowed. With sediment noted in the urine.] Treatment Plan: [Follow-up with urology as needed.] Disposition: [Discharged home stable condition.] Impression: [Urinary retention Badillo catheter placed] This note was generated with Razient dictation software. It may contain incorrect words, spelling, and punctuation that were not noted in review of the chart prior to signing ED Disposition - Plan for ED Patient: Referrals: Alex Gupta MD [Primary Care Provider] -
--- NOTE | 2019-08-03 23:35 | ED.DEP ---
ED Disposition - Plan for ED Patient: Instructions: URINARY RETENTION, Male, Badillo Catheter, Care Referrals: Alex Gupta MD [Primary Care Provider] - Guido Pantoja MD [STAFF PHYSICIAN] - As Needed
[2019-08-03 23:48] VITALS: BP 128/74; PULSE 87; RESP 16; O2SAT 96
== END 2019-08-03 23:48 | disposition home or self-care (01) ==
LOC: ED 23:11
PROVIDERS: Emergency Provider Emergency Medicine; Family Provider Family Medicine; PCP Family Medicine
DX: T83.098A Other mechanical complication of other urinary catheter, initial encounter (principal); Y73.8 Miscellaneous gastroenterology and urology devices associated with adverse incidents, not elsewhere classified; R33.9 Retention of urine, unspecified; I25.10 Atherosclerotic heart disease of native coronary artery without angina pectoris; E78.00 Pure hypercholesterolemia, unspecified; N18.9 Chronic kidney disease, unspecified; I12.9 Hypertensive chronic kidney disease with stage 1 through stage 4 chronic kidney disease, or unspecified chronic kidney disease
CPT/HCPCS: 51702; 99284

== ENCOUNTER 2019-09-12 10:02 | Emergency (ER) | payer MEDICARE, SELFPAY ==
[2019-09-12 10:03] VITALS: BP 109/64; PULSE 89; RESP 17; TEMP 36.4; O2SAT 97; BMI 29.8
--- NOTE | 2019-09-12 10:27 | ED.VISSUMM ---
- ER Visit Summary Date of Service: 09/12/19 Chief Complaint: Badillo catheter clogged History of Present Illness: The patient is a 84 M with an indwelling Badillo catheter. It was not draining today. He reports some suprapubic soreness but denies any other associated symptoms. Denies bleeding. Denies any fevers or infectious symptoms. Physical Examination: Afebrile and vital signs unremarkable. Abdomen is soft and nontender. The remainder of his exam is unremarkable except he does have bedbugs crawling on his clothing. Test Results: None performed Emergency Department Course and Treatment: Badillo catheter was replaced by nursing. He had good drainage. Urine was nonbloody, but did have some sediment that was concerning for UTI. Urinalysis was not performed, as it would be positive. I will treat with Keflex and check cultures instead. He has no sign of sepsis or other systemic symptoms. Patient will be discharged. Treatment Plan: As above Disposition: Discharge Impression: 1. Badillo catheter obstruction 2. Bedbugs This note was generated with StarShooter dictation software. It may contain incorrect words, spelling, and punctuation that were not noted in review of the chart prior to signing ED Disposition - Plan for ED Patient: Referrals: Alex Gupta MD [Primary Care Provider] -
--- NOTE | 2019-09-12 10:30 | ED.RN ---
Bedbugs found by Dr. Gillis, pt put on isolation.
--- NOTE | 2019-09-12 11:06 | ED.DEP ---
ED Disposition - Plan for ED Patient: Instructions: Badillo Catheter, Care Prescriptions: Cephalexin [Keflex] 500 mg PO Q6 #28 cap Prescription Printed Referrals: Alex Gupta MD [Primary Care Provider] -
[2019-09-12 11:19] LABS: Bacteria 0 SEEN /hpf (None Seen); Mucous, Urine 0 SEEN /hpf (<or=2+); Red Blood Cells-Urine 0 SEEN /hpf (0-5); Squamous Epithelial Cells - UA 0 SEEN /hpf (0-5)
[2019-09-12] MEDS: Cephalexin 250 MG Capsule 500 MG PO (11:28)
[2019-09-12 11:35] VITALS: PULSE 88; RESP 17; O2SAT 95
[2019-09-12 11:38] LABS: Color, Urine Yellow (Yellow); Glucose, Dipstick Normal (Normal); Ketone-Dipstick Negative (Negative); Leukocyte Esterase-Dipstick 500 /ul (Negative); Nitrite-Dipstick Negative (Negative); Occult Blood-Urine 150 /ul (Negative); Protein-Dipstick 100 mg/dl (Negative); Urine Bilirubin Dipstick Negative (Negative); Urine Clarity Cloudy (Clear); Urine Urobilinogen Normal (Normal)
[2019-09-12 11:43] LABS: Amorphous Sediment 3+; White Blood Cells >100 SEEN /hpf (0-5)
== END 2019-09-12 11:30 | disposition home or self-care (01) ==
LOC: ED 10:26
PROVIDERS: Emergency Provider Emergency Medicine; Family Provider Family Medicine; PCP Family Medicine
DX: T83.091A Other mechanical complication of indwelling urethral catheter, initial encounter (principal); B88.8 Other specified infestations; I25.10 Atherosclerotic heart disease of native coronary artery without angina pectoris; I10 Essential (primary) hypertension; E78.00 Pure hypercholesterolemia, unspecified; I47.1 Supraventricular tachycardia; Z95.1 Presence of aortocoronary bypass graft; Z79.899 Other long term (current) drug therapy
CPT/HCPCS: 51702; 81001; 87077; 87086; 87088; 87186; 99284

== ENCOUNTER 2019-12-28 20:49 | Emergency (ER) | payer MEDICARE, SELFPAY ==
[2019-11-25 13:56] VITALS: BMI 29.4
[2019-12-28 20:49] VITALS: BP 132/86; PULSE 75; RESP 18; TEMP 35.8; O2SAT 98; BMI 26.6
--- NOTE | 2019-12-28 22:03 | ED.RN ---
Evaluated pts catheter. An excessive amount of catheter was hanging out of his body. Unable to flush catheter, pt had a lot of pain. Balloon was drained and advanced further into pts bladder with immediate flow of pus and urine. Catheter hooked back up to pts leg bag. 300ml drained from leg bag. Statlock used to secure pts catheter to leg.
[2019-12-28 22:24] LABS: Mucous, Urine 0 SEEN /hpf (<or=2+)
[2019-12-28 22:30] LABS: Color, Urine Straw (Yellow); Glucose, Dipstick Normal (Normal); Ketone-Dipstick Negative (Negative); Leukocyte Esterase-Dipstick 500 /ul (Negative); Nitrite-Dipstick Negative (Negative); Occult Blood-Urine 250 /ul (Negative); Protein-Dipstick 100 mg/dl (Negative); Urine Bilirubin Dipstick Negative (Negative); Urine Clarity Sl. Cloudy (Clear); Urine Urobilinogen Normal (Normal)
[2019-12-28 22:38] LABS: Amorphous Sediment 1+ PHOS; Bacteria RARE /hpf (None Seen); Red Blood Cells-Urine 10-25 SEEN /hpf (0-5); Squamous Epithelial Cells - UA 0-5 SEEN /hpf (0-5); White Blood Cells 50-100 SEEN /hpf (0-5)
--- NOTE | 2019-12-28 22:46 | ED.VISSUMM ---
- ER Visit Summary Date of Service: 12/28/19 Chief Complaint: Badillo catheter complaint History of Present Illness: The patient is a 84 M who presents with a plugged Badillo catheter. Patient had his catheter changed earlier today. Patient was unable to drain his bladder with the catheter. Patient felt like he was having needles in his suprapubic area. Patient denies any fevers or chills. Patient denies any dysuria or hematuria. Patient denies any nausea or vomiting. Patient denies any back or flank pain. Physical Examination: Vital signs are stable. Patient is afebrile. Patient is in no acute distress. Oral mucosa is pink and moist. Neck is supple. Trachea is midline. There is no JVD. Heart was regular rate and rhythm. Lungs are clear and equal bilaterally. Abdomen is soft. Bowel sounds are normal. There is mild suprapubic tenderness. There is no rebound or guarding noted. Cranial nerves II through XII are intact. There are no focal motor or sensory deficits. Test Results: Urinalysis was obtained and shows leukocyte esterase of 500 with 50-100 white blood cells. Urine culture was ordered. Emergency Department Course and Treatment: The catheter was reinserted into the bladder and there was good urine flow. Patient felt better after this. Patient was given a prescription for Bactrim. Patient was instructed to follow-up with his primary care physician in 5 to 7 days. Patient understood and was agreeable with the plan. All questions were answered. Disposition: Discharge home Impression: 1. Urinary tract infection 2. Displaced Badillo catheter This note was generated with Tribotek dictation software. It may contain incorrect words, spelling, and punctuation that were not noted in review of the chart prior to signing ED Disposition - Plan for ED Patient: Disposition: Home or Assisted Living Diagnosis: Urinary tract infection, Dislodged Badillo catheter Instructions: Badillo Catheter, Care, Bladder Infection, Male (Adult) Prescriptions: Smz/Tmp Ds [Bactrim Ds] 1 tab PO BID #14 tab Prescription Printed Referrals: Alex Gupta MD [Primary Care Provider] - 5-7 Days
[2019-12-28] MEDS: Smz/Tmp Ds Tablet 1 TABLET PO (23:08)
[2019-12-28 23:12] VITALS: BP 125/74; PULSE 84; RESP 16; O2SAT 98
== END 2019-12-28 23:12 | disposition home or self-care (01) ==
PROVIDERS: Emergency Provider Emergency Medicine; PCP Family Medicine
DX: N39.0 Urinary tract infection, site not specified (principal); Z46.6 Encounter for fitting and adjustment of urinary device; J34.89 Other specified disorders of nose and nasal sinuses; I25.10 Atherosclerotic heart disease of native coronary artery without angina pectoris; Z95.1 Presence of aortocoronary bypass graft; Z79.899 Other long term (current) drug therapy
CPT/HCPCS: 81001; 87077; 87086; 87088; 87186; 99283

== ENCOUNTER 2020-01-21 05:45 | Day surgery (SDC) | payer MEDICARE, SELFPAY ==
[2020-01-21] VITALS (7 sets, daily range): BP systolic 88–105; BP diastolic 55–85; PULSE 60–86; RESP 12–16; TEMP 36.4–36.9; O2SAT 97–99; BMI 27.1
[2020-01-21] MEDS: Lactated Ringers 1,000 ML 100 ML IV (06:15)
[2020-01-21] MEDS: Cefazolin 2 GM in 0.9% Normal Saline 100 ML IV (07:19)
--- NOTE | 2020-01-21 07:26 | PCM.DC.URO ---
Discharge Diet: Light diet - advance as tolerated Discharge Activity: Return to Normal Activity Call your doctor if your incision/area has: Sudden Increased Bleeding Call your doctor if you observe: Fever of 101 or Higher Suture Line Care: Avoid Pulling/Pushing, Avoid Pinching/Bending Allergies/Adverse Reactions: Allergies ciprofloxacin Allergy (Verified 01/21/20 06:04) Itching Medications to take at Discharge Atorvastatin Calcium 40 mg PO QHS 04/22/17 Cholecalciferol (Vitamin D3) [Vitamin D3] 1,000 unit PO DAILY 04/22/17 Pantoprazole Sodium [Protonix] 20 mg PO DAILY 04/22/17 Iron Polysaccharide Complex [Ferrex 150] 150 mg PO DAILYCM 10/21/18 metoprolol tartrate 25 mg tablet 25 mg PO BID #180 tab 02/01/19 Cephalexin [Keflex] 500 mg PO TID #15 cap 01/21/20 The following prescriptions were given: Cephalexin [Keflex] 500 mg PO TID #15 cap Transmission Status: Pending to [facility] Primary Care Physician: Alex Gupta MD [Primary Care Provider] - Test Results: Test results from this visit will be discussed in further detail at your follow-up appointment, if applicable. Please Follow Up With: Guido Pantoja MD When: please call to make an appointment- 3 month follow uop
--- NOTE | 2020-01-21 08:04 | PCM.OPRPT ---
Report of Operation Date of Procedure: 01/21/20 Pre-Operative Diagnosis: Bilateral ureteral obstruction secondary to enlarged retroperitoneal hernia chronic urinary retention and bilateral hydronephrosis. Post-Operative Diagnosis: The same Surgery/Procedure Performed:: Cystoscopy and left stent removal unable to place left stent due to difficult angle. Right stent removal, right retrograde pyelogram and right stent placement. Badillo catheter placement. 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 He was given preoperative antibiotics, had SCDs, underwent MAC local anesthetic. Taken back to the operating room after anesthesia he was placed prone on the table and then in dorsolithotomy position he had a very large scrotum with a hernia penis is uncircumcised we prepped and draped the patient in usual sterile fashion. Went to the urethra with a 21 Armenian rigid cystourethroscope. Once inside the bladder had a very large distended bladder was heavily trabeculated throughout the bladder did very difficult anatomy a lot of bullous edema around both the ureteral orifices I first grabbed the stent from the right side pulled out the meatus I tried to put a wire up the stent but the wire would not go up because the stent was completely encrusted I then pulled the stent all the way went back in the bladder I found the area of bullous edema some on the right trigone area and by poking the area several times and I get the wire up on the right side again extreme bullous edema throughout the trigone very difficult even see where the orifices are. Once a get the wire up in that side but a Pollack catheter behind it and then performed a retrograde pyelogram conceals in the kidney on the right side and then put a wire back up and then placed a stent 6 Armenian by 28 cm stent in the right side pulled the wire the stent: The kidney bladder good position I then plan to the left side I pulled the stent on the left side and pulled it out to the meatus try to put a wire through it but again could not get a wire through it and the stent came out went inside in the left side the bladder was pulled down because of a large inguinal hernia and the trigone on that side was almost retroflexing out of the way you could see some bullous edema where the ureter orifice is supposed to be but we tried multiple angles were tried the don kee tried a angle-tip catheter is was not able to get back into the ureter on the left side at this point after some significant time attempting to place a stent on that left side decided to abandon any further attempts and did not place a stent back on the left side so the only had a stent on the right side and left stent was removed we then put a catheter into the bladder patient acetic was reversed and will see the patient in the office in about 3 months for follow-up. Type of Anesthesia:: Local MAC Drains: stent right only 6 fr x 28cm - Admit VTE Documentation VTE Present on Admission: No VTE Mechan Device Prophylaxis: SCD's
== END 2020-01-21 09:19 | disposition home or self-care (01) ==
LOC: SDC 05:46 → AC 05:48
PROVIDERS: PCP Family Medicine; Referring Provider Urology; Visit Provider Urology
PROC: (CPT 52332; principal; 2020-01-21 07:20)
DX: N13.1 Hydronephrosis with ureteral stricture, not elsewhere classified (principal); K40.90 Unilateral inguinal hernia, without obstruction or gangrene, not specified as recurrent; N40.1 Benign prostatic hyperplasia with lower urinary tract symptoms; R33.8 Other retention of urine; Z46.6 Encounter for fitting and adjustment of urinary device; I13.10 Hypertensive heart and chronic kidney disease without heart failure, with stage 1 through stage 4 chronic kidney disease, or unspecified chronic kidney disease; N18.3 Chronic kidney disease, stage 3 (moderate); I25.2 Old myocardial infarction; K21.9 Gastro-esophageal reflux disease without esophagitis; D64.9 Anemia, unspecified; E78.00 Pure hypercholesterolemia, unspecified; Z87.19 Personal history of other diseases of the digestive system; Z95.1 Presence of aortocoronary bypass graft; Z79.899 Other long term (current) drug therapy; Z87.891 Personal history of nicotine dependence
CPT/HCPCS: 52332; 76000; J7120; Q9967; C1769; J2405

== ENCOUNTER → 2020-04-05 15:07 | Outpatient (CLI) | payer MEDICARE, SELFPAY ==
[2020-01-21 06:03] VITALS: BMI 27.1
[2020-04-05 18:05] LABS: Anion Gap 7 (5-15); BUN 37 mg/dL (7-18); BUN/Creat Ratio 11.4 RATIO (10-20); Calcium,Total 7.7 mg/dL (8.5-10.1); Chloride 111 mmol/L (98-107); Cholesterol 155 mg/dL (200); Creatinine, Serum 3.24 mg/dL (0.70-1.30); EST Glomerular Filtration Rate 20 mL/min (>60); Est Glom Filt Rate - Afr Amer 24 mL/min (>60); Glucose 112 mg/dL (74-106); High Density Lipoprotein 39 mg/dL; Potassium 4.9 mmol/L (3.5-5.1); Sodium Level 141 mmol/L (136-145); Triglycerides 121 mg/dL; Very Low Density Lipoprotein 24 mg/dL (5-40)
== END ==
PROVIDERS: PCP Family Medicine; Visit Provider Family Medicine
DX: I10 Essential (primary) hypertension (principal)
CPT/HCPCS: 36415; 80048; 80061

== ENCOUNTER 2020-04-25 00:18 | Emergency (ER) | payer MEDICARE, SELFPAY ==
[2020-01-21 06:03] VITALS: BMI 27.1
[2020-04-25 00:19] VITALS: BP 107/59; PULSE 72; RESP 18; TEMP 36.9; O2SAT 99; BMI 29.1
--- NOTE | 2020-04-25 00:46 | ED.VIS.GEN ---
History of Present Illness Chief Complaint: Complaint Informant: Patient, Family Onset: Today Current Severity: Mild Maximum Severity: Mild Narrative: Patient presents secondary to Badillo catheter not draining correctly. It was changed this morning in Dr. Pantoja's office. Patient has not noted significant drainage in the bag since that time and he does have pain. - Past Medical History (1) Aortocoronary bypass status Status: Chronic Comment: CABG x1- SILVEIRA to LAD off pump @ [facility] 02/06/12 (2) Atherosclerotic heart disease of [place] coronary artery without angina pectoris Status: Chronic Comment: CABG x1- SILVEIRA to LAD off pump @ [facility] 02/06/12 (3) Essential (primary) hypertension Status: Chronic (4) History of PSVT (paroxysmal supraventricular tachycardia) Status: Chronic (5) Premature ventricular contractions Status: Chronic (6) Presence of stent in coronary artery Status: Chronic Comment: PTCA/BMS in prox LAD 08/15/11 (7) Pure hypercholesterolemia Status: Chronic Past Medical History - Allergies and Home Meds Allergies/Adverse Reactions: Allergies ciprofloxacin Allergy (Verified 04/25/20 00:19) Itching Primary Care Physician: Guido Pantoja MD [STAFF PHYSICIAN] - As Needed Prior records reviewed: Yes Surgical History: coronary bypass surgery Lives: Spouse/ Significant Other Smoking Status: Current some day smoker - Family History Maternal Family History: Family History (Last Reviewed 11/25/19 @ 14:21 by MARTA Cleary) Father COPD (chronic obstructive pulmonary disease) Mother No problems noted. Family History: Reports: No pertinent history Review of Systems General: Denies: Chills, Fever Eyes: Denies: Visual changes - bilaterally ENT: Denies: Bilateral ear pain Cardiovascular: Denies: Chest pain Respiratory: Denies: Dyspnea, Cough Gastrointestinal: Reports: Abdominal pain. Denies: Vomiting, Diarrhea Genitourinary: Reports: - - Badillo catheter not draining Hematologic: Denies: Easy bruising, Easy bleeding Allergy: Denies: Uticaria Physical Exam Vital Signs/Narrative: Vital Signs Temp Pulse Resp BP Pulse Ox 04/25/20 00:19 98.4 F 72 18 107/59 L 99 Inital Vital Signs reviewed: Yes General: Well nourished, Well developed Head: Normocephalic ENT: Moist mucous membranes Neck: Supple Cardiovascular: Regular rate, Regular rhythm Respiratory: No distress, CTA bilaterally Abdomen: Soft, Nontender Skin: Normal color Neurological: Alert, Oriented x3 Psychological: Normal affect Diagnostic/Tx/Re-eval - Medical Decision Making Nursing staff reposition the Badillo catheter and got good drainage of urine into the collection bag. Patient states that the pain he was experiencing is improved. He is discharged home with his at this time. ED Disposition - Plan for ED Patient: Disposition: Home or Assisted Living Diagnosis: Badillo catheter problem Instructions: ED Badillo Catheter Care Referrals: Guido Pantoja MD [STAFF PHYSICIAN] - As Needed
[2020-04-25 00:58] VITALS: BP 107/59; PULSE 70; RESP 16; O2SAT 98
== END 2020-04-25 00:59 | disposition home or self-care (01) ==
PROVIDERS: Emergency Provider Emergency Medicine; PCP Family Medicine
DX: Z46.6 Encounter for fitting and adjustment of urinary device (principal); I25.10 Atherosclerotic heart disease of native coronary artery without angina pectoris; I10 Essential (primary) hypertension; I47.1 Supraventricular tachycardia; E78.00 Pure hypercholesterolemia, unspecified; Z95.1 Presence of aortocoronary bypass graft; Z79.899 Other long term (current) drug therapy; F17.200 Nicotine dependence, unspecified, uncomplicated
CPT/HCPCS: 99282

== ENCOUNTER → 2020-05-23 16:07 | Outpatient (CLI) | payer MEDICARE, SELFPAY ==
[2020-04-25 00:19] VITALS: BMI 29.1
[2020-05-23 17:17] LABS: International Normalized Ratio 1.1; Prothrombin Time (Protime)PT. 13.3 SECONDS (11.7-14.9)
[2020-05-23 17:29] LABS: Anion Gap 6 (5-15); BUN 38 mg/dL (7-18); BUN/Creat Ratio 12.1 RATIO (10-20); Calcium,Total 7.7 mg/dL (8.5-10.1); Chloride 114 mmol/L (98-107); Creatinine, Serum 3.15 mg/dL (0.70-1.30); EST Glomerular Filtration Rate 20 mL/min (>60); Est Glom Filt Rate - Afr Amer 24 mL/min (>60); Glucose 104 mg/dL (74-106); Potassium 4.2 mmol/L (3.5-5.1); Sodium Level 143 mmol/L (136-145)
== END ==
PROVIDERS: PCP Family Medicine; Referring Provider Urology; Visit Provider Urology
DX: Z01.812 Encounter for preprocedural laboratory examination (principal); N18.4 Chronic kidney disease, stage 4 (severe)
CPT/HCPCS: 36415; 80048; 85610

== ENCOUNTER → 2020-06-05 08:26 | Outpatient (CLI) | payer MEDICARE, SELFPAY ==
[2020-06-05] VITALS (9 sets, daily range): BP systolic 102–134; BP diastolic 53–69; PULSE 53–64; RESP 12–20; TEMP 37.1; O2SAT 16–99; BMI 29.7
--- NOTE | 2020-06-05 08:36 | CT_ITS ---
PROCEDURE: CT GUIDANCE DURING PERCUTANEOUS NEPHROSTOMY PROCEDURE. DATE OF EXAMINATION: June 05, 2020. INDICATION: Male, 85 years old. Chronic left hydronephrosis. PHYSICIAN: Satya Zarate M.D. CONSENT: The patient''s history and physical findings were reviewed. Prior to the procedure the percutaneous nephrostomy insertion was described to the patient and patient''s who then signed a consent. SEDATION: Conscious sedation was performed. The patient received 1 mg of present and 50 mcg of fentanyl intravenously. Conscious sedation was started at 10:08 AM and terminated at 10:40 AM. The patient was independently monitored by the department nurse. TECHNIQUE: A percutaneous left nephrostomy catheter was inserted under CT guidance. . A loop of the pigtail catheter was formed within the left renal pelvis and locked in this position. There is dilatation of the upper collecting system. The catheter was secured to the skin surface and covered with a sterile dressing. 140 cc of urine was aspirated. The catheter was attached to a drainage bag attached to the patient''s leg. CT/Biopsy/Inj or Needle Placement IMPRESSION: 1. The percutaneous left nephrostomy catheter is in good position with the pigtail portion located in the left renal pelvis. 2. The patient tolerated the procedure well. 3. Conscious sedation protocol was followed. Electronically Signed: Satya Zarate, at 11:08 EDT , Service support ,
[2020-06-05 08:42] LABS: Platelet Count 247 K/mm3 (150-450)
[2020-06-05 09:43] LABS: International Normalized Ratio 1.1; Prothrombin Time (Protime)PT. 13.6 SECONDS (11.7-14.9)
[2020-06-05 09:44] LABS: Partial Thromboplast Time 28.6 Seconds (24.1-36.2)
[2020-06-05] MEDS: fentaNYL 100 MCG/2 ML Ampul IV (10:09)
[2020-06-05] MEDS: Midazolam 2 MG/2 ML Syringe IV (10:12)
[2020-06-05] MEDS: 0.9% Saline Lock 10 ML Syringe IV (10:13)
== END ==
LOC: CT 08:28
PROVIDERS: PCP Family Medicine; Referring Provider Urology; Visit Provider Urology
DX: N18.4 Chronic kidney disease, stage 4 (severe) (principal)
CPT/HCPCS: 50200; 77012; 36415; 85049; 85610; 85730; 99156; 99157; J7040; A4216

== ENCOUNTER → 2020-06-16 16:02 | Outpatient (CLI) | payer MEDICARE, SELFPAY ==
[2020-06-05 08:56] VITALS: BMI 29.7
[2020-06-16 17:14] LABS: Hematocrit 36.2 % (40-54); Hemoglobin 11.9 g/dL (13.0-16.5); Mean Corp Hgb Conc 32.9 g/dL (32-36); Mean Corpuscular Hgb 30.8 pg (27.0-32.0); Mean Corpuscular Volume 93.8 fL (80-94); Mean Platelet Vol. 9.6 fl (6.2-12.0); Platelet Count 374 K/mm3 (150-450); RBC Distribution Width CV 12.6 % (11.6-14.6); RBC Distribution Width SD 43.3 fl (35.1-43.9); Red Blood Count 3.86 M/mm3 (4.6-6.2); White Blood Count 5.6 K/mm3 (4.4-11.0)
[2020-06-16 17:38] LABS: Albumin, Serum 3.1 g/dL (3.2-5.0); BUN 37 mg/dL (7-18); BUN/Creat Ratio 12.8 RATIO (10-20); Calcium,Total 7.6 mg/dL (8.5-10.1); Chloride 112 mmol/L (98-107); Creatinine, Serum 2.89 mg/dL (0.70-1.30); EST Glomerular Filtration Rate 22 mL/min (>60); Est Glom Filt Rate - Afr Amer 27 mL/min (>60); Glucose 138 mg/dL (74-106); Phosphorus 2.7 mg/dL (2.5-4.9); Potassium 4.4 mmol/L (3.5-5.1); Sodium Level 139 mmol/L (136-145)
[2020-06-16 17:49] LABS: Creat.Clear Total Volume 1425 mL; Creatinine Clearance 23 ml/min (100-200); Creatinine Serum Creat 2.9 mg/dL (0.8-1.3); Creatinine Urine 66.1 mg/dL (NO RANGE EST.); EST Glomerular Filtration Rate 22 mL/min (>60); Est Glom Filt Rate - Afr Amer 27 mL/min (>60)
[2020-06-17 08:55] LABS: PTHIN 182.5 pg/mL (18.4-80.1)
== END ==
PROVIDERS: PCP Family Medicine; Referring Provider Internal Medicine Nephrology; Visit Provider Internal Medicine Nephrology
DX: N18.4 Chronic kidney disease, stage 4 (severe) (principal)
CPT/HCPCS: 80069; 82575; 83970; 85027

== ENCOUNTER → 2020-07-04 15:26 | Outpatient (CLI) | payer MEDICARE, SELFPAY ==
[2020-06-05 08:56] VITALS: BMI 29.7
[2020-07-04 17:06] LABS: Anion Gap 5 (5-15); BUN 31 mg/dL (7-18); Calcium,Total 8.2 mg/dL (8.5-10.1); Chloride 113 mmol/L (98-107); EST Glomerular Filtration Rate 21 mL/min (>60); Est Glom Filt Rate - Afr Amer 25 mL/min (>60); Glucose 104 mg/dL (74-106); Potassium 4.4 mmol/L (3.5-5.1); Sodium Level 141 mmol/L (136-145)
== END ==
PROVIDERS: PCP Family Medicine; Referring Provider Urology; Visit Provider Urology
DX: N18.4 Chronic kidney disease, stage 4 (severe) (principal)
CPT/HCPCS: 36415; 80048

== ENCOUNTER → 2020-07-10 13:11 | Outpatient (CLI) | payer MEDICARE, SELFPAY ==
[2020-06-05 08:56] VITALS: BMI 29.7
--- NOTE | 2020-07-10 13:14 | VDUE_ITS ---
Reason For Study: CKD Right Arm Left Arm Right Cephalic Vein at the wrist measures Left Cephalic Vein at the wrist measures 0.31 x 0.35 cm. 0.30 x 0.36 cm. Right Cephalic Vein in the forearm measures Left Cephalic Vein in the forearm measures 0.31 x 0.32 cm. 0.24 x 0.24 cm. Right Cephalic Vein below antecub measures Left Cephalic Vein below antecub measures 0.31 x 0.33 cm. 0.29 x 0.29 cm. Right Cephalic Vein above antecub measures Left Cephalic Vein above antecub measures 0.43 x 0.52 cm. 0.46 x 0.46 cm. Right Cephalic Vein mid bicep measures 0.42 Left Cephalic Vein at mid bicep measures x 0.43 cm. 0.46 x 0.45 cm. Right Cephalic Vein at the shoulder measures Left Cephalic Vein at the shoulder measures 0.46 x 0.46 cm. 0.53 x 0.53 cm. Cephalic branch mid forearm measures 0.19 x Basilic vein at origin measures 0.36 x 0.39 0.20 cm. cm. Cephalic branch above antecube measures 0.34 Basilic vein at bicep measures 0.35 x 0.38 x 0.33 cm. cm. Right Basilic Vein at the origin measures Basilic vein above antecub measures 0.40 x 0.54 x 0.55 cm. 0.43 cm. Right Basilic Vein mid bicep measures 0.40 x Left Brachial artery measures 0.43 x 0.43 cm 0.44 cm. with a velocity of 79.6 cm/sec. Right Basilic Vein above antecub measures Left Radial artery measures 0.28 x 0.28 cm 0.47 x 0.46 cm. with a velocity of 69.8 cm/sec. Right Brachial artery measures 0.51 x 0.48 cm with a velocity of 60.9 cm/sec. Right Radial artery measures 0.27 x 0.29 cm with a velocity of 66.1 cm/sec. Interpretation Summary Patent and compressible bilateral upper extremity cephalic and basilic veins with dimensions as noted. Normal diameter and flow bilateral brachial and radial arteries Ordering Physician: Elaina Wu Referring Physician: Alex Gupta Performed By: Maryellen Hubbard RVT ?
== END ==
LOC: CVS 13:12
PROVIDERS: PCP Family Medicine; Referring Provider Internal Medicine Nephrology; Visit Provider Internal Medicine Nephrology
DX: Z01.818 Encounter for other preprocedural examination (principal); N18.4 Chronic kidney disease, stage 4 (severe)
CPT/HCPCS: 93970

== ENCOUNTER 2020-08-30 05:35 | Day surgery (SDC) | payer MEDICARE, SELFPAY ==
[2020-07-12 10:48] VITALS: BMI 29.0
--- NOTE | 2020-08-23 12:13 | EKG12_ITS ---
Test Reason : PRE OP Blood Pressure : / mmHG Vent. Rate : 072 BPM Atrial Rate : 072 BPM P-R Int : 178 ms QRS Dur : 092 ms QT Int : 406 ms P-R-T Axes : 055 070 069 degrees QTc Int : 444 ms Normal sinus rhythm Normal ECG Confirmed by MEENAKSHI BALDERAS, ROSHAN ([id number]), editorial director TOD DEVINE ([id number]) on 08/24/2020 8:31:53 AM Referred By: Tim Lundy Confirmed By:BRISEYDA ARRIETA MD
[2020-08-23 12:55] LABS: Hemoglobin 12.9 g/dL (13.0-16.5); Mean Corp Hgb Conc 32.3 g/dL (32-36); Mean Corpuscular Hgb 30.6 pg (27.0-32.0); Mean Platelet Vol. 9.9 fl (6.2-12.0); Platelet Count 268 K/mm3 (150-450); RBC Distribution Width CV 12.7 % (11.6-14.6); RBC Distribution Width SD 43.8 fl (35.1-43.9); Red Blood Count 4.21 M/mm3 (4.6-6.2); White Blood Count 4.9 K/mm3 (4.4-11.0)
[2020-08-23 13:08] VITALS: BMI 29.7
[2020-08-23 13:21] LABS: Anion Gap 5 (5-15); BUN 32 mg/dL (7-18); BUN/Creat Ratio 10.3 RATIO (10-20); Calcium,Total 8.1 mg/dL (8.5-10.1); Chloride 109 mmol/L (98-107); EST Glomerular Filtration Rate 21 mL/min (>60); Est Glom Filt Rate - Afr Amer 25 mL/min (>60); Glucose 131 mg/dL (74-106); Sodium Level 141 mmol/L (136-145)
--- NOTE | 2020-08-30 05:51 | HP.PCM_ITS ---
Problem List (1) Chronic renal failure Status: Chronic Qualifiers: History and Physical Date of Admission: 08/30/20 Intake Visit Reasons: discuss surgery av fistula creation 08-30 Chief Complaint: discuss surgery Financial Planning Consultant Required: No Is patient in pain?: No Allergies ciprofloxacin Allergy (Verified 08/23/20 13:08) Itching Medications Atorvastatin Calcium 40 mg PO QHS 04/22/17 [History Confirmed 08/23/20] Cholecalciferol (Vitamin D3) [Vitamin D3] 1,000 unit PO DAILY 04/22/17 [History Confirmed 08/23/20] Pantoprazole Sodium [Protonix] 20 mg PO DAILY 04/22/17 [History Confirmed 08/23/20] metoprolol tartrate 25 mg tablet 25 mg PO BID #180 tab 03/13/20 [Rx Confirmed 08/23/20] tamsulosin 0.4 mg capsule 0.4 mg PO QHS 05/12/20 [History Confirmed 08/23/20] [facility] Medical History Chronic renal failure (Chronic) Pure hypercholesterolemia (Chronic) Atherosclerotic heart disease of [place] coronary artery without angina pectoris (Chronic) Sinus tachycardia (Chronic) Premature ventricular contractions (Chronic) Nonsustained paroxysmal ventricular tachycardia (Chronic) Abnormal electrocardiogram during exercise stress test (Chronic) 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) History of PSVT (paroxysmal supraventricular tachycardia) (Chronic) Fatigue (Chronic) Chest discomfort (Chronic) Essential (primary) hypertension (Chronic) BPH (benign prostatic hyperplasia) (Acute) Chronic renal failure, stage 4 (severe) (Acute) Left inguinal hernia (Acute) Normochromic normocytic anemia (Acute) LEWIS (acute kidney injury) (Inactive) Atherosclerosis of coronary artery bypass graft without angina pectoris (Inactive) BPH (benign prostatic hypertrophy) (Inactive) Bladder diverticulum (Inactive) Chronic indwelling Badillo catheter (Inactive) Chronic renal failure, stage 4 (severe) (Inactive) Coronary artery disease (Inactive) Dyslipidemia (Inactive) Hydrocele of testis (Inactive) Hydronephrosis, left (Inactive) Hydroureter, left (Inactive) Hyperlipidemia (Inactive) Hypocalcemia (Inactive) Hypophosphatemia (Inactive) Left inguinal hernia (Inactive) Normochromic normocytic anemia (Inactive) Surgical History Presence of stent in coronary artery (Chronic ~08/15/11) Aortocoronary bypass status (Chronic ~02/06/12) history cysto and insertion stent (Resolved) history cysto and removal stent (Resolved) Hx of CABG (Inactive) Family History Father COPD (chronic obstructive pulmonary disease) Mother No problems noted. Social History (Updated 08/23/20 @ 13:[address] Tim Lundy MD) Smoking Status: Former smoker alcohol intake: never substance use type: does not use caffeine: Yes Type: coffee Number of servings: 2 HPI HPI HPI: JARAD WOOD, is a 85 M who presents to the office today for repeat discussion regarding a arteriovenous fistula creation for hemodialysis. The patient left wears a wrist watch on his left wrist. He is somewhat confused. He is brought in with his today. After discussion with her children he has elected to proceed with creation of an AV fistula hemodialysis. He however does not want the left forearm site because of the watch. My previous notes reflect the following. Intake Visit Reasons: Chronic Kidney Disease Chief Complaint: fistula creation Financial Planning Consultant Required: No Is patient in pain?: No Allergies ciprofloxacin Allergy (Verified 07/12/20 14:13) Itching Medications Atorvastatin Calcium 40 mg PO QHS 04/22/17 [History Confirmed 07/12/20] Cholecalciferol (Vitamin D3) [Vitamin D3] 1,000 unit PO DAILY 04/22/17 [History Confirmed 07/12/20] Pantoprazole Sodium [Protonix] 20 mg PO DAILY 04/22/17 [History Confirmed 07/12/20] metoprolol tartrate 25 mg tablet 25 mg PO BID #180 tab 03/13/20 [Rx Confirmed 07/12/20] tamsulosin 0.4 mg capsule 0.4 mg PO DAILY 05/12/20 [History Confirmed 07/12/20] [facility] Medical History Pure hypercholesterolemia (Chronic) Atherosclerotic heart disease of [place] coronary artery without angina pectoris (Chronic) Sinus tachycardia (Chronic) Premature ventricular contractions (Chronic) Nonsustained paroxysmal ventricular tachycardia (Chronic) Abnormal electrocardiogram during exercise stress test (Chronic) 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) History of PSVT (paroxysmal supraventricular tachycardia) (Chronic) Fatigue (Chronic) Chest discomfort (Chronic) Essential (primary) hypertension (Chronic) BPH (benign prostatic hyperplasia) (Acute) Chronic renal failure, stage 4 (severe) (Acute) Left inguinal hernia (Acute) Normochromic normocytic anemia (Acute) LEWIS (acute kidney injury) (Inactive) Atherosclerosis of coronary artery bypass graft without angina pectoris (Inactive) BPH (benign prostatic hypertrophy) (Inactive) Bladder diverticulum (Inactive) Chronic indwelling Badillo catheter (Inactive) Chronic renal failure, stage 4 (severe) (Inactive) Coronary artery disease (Inactive) Dyslipidemia (Inactive) Hydrocele of testis (Inactive) Hydronephrosis, left (Inactive) Hydroureter, left (Inactive) Hyperlipidemia (Inactive) Hypocalcemia (Inactive) Hypophosphatemia (Inactive) Left inguinal hernia (Inactive) Normochromic normocytic anemia (Inactive) Surgical History Presence of stent in coronary artery (Chronic ~08/15/11) Aortocoronary bypass status (Chronic ~02/06/12) history cysto and insertion stent (Resolved) history cysto and removal stent (Resolved) Hx of CABG (Inactive) Family History Father COPD (chronic obstructive pulmonary disease) Mother No problems noted. Social History (Updated 07/12/20 @ 14:[address] Tim Lundy MD) Smoking Status: Former smoker alcohol intake: never substance use type: does not use caffeine: Yes Type: coffee Number of servings: 2 HPI HPI HPI: JARAD WOOD, is a 85 M who presents to the office today for surgical consultation by Dr. Elaina Wu regarding creation of a arteriovenous fistula for hemodialysis. A written copy of my surgical consult recommendations will be returned to her. The patient apparently is very hard of hearing. Questions were answered mostly by his . He apparently sees and he has a nephrostomy tube in place. As of July 04, 2020 BUN was 31 creatinine 3.1 with an estimated GFR of 21. He had vein mapping as noted below. He is right arm dominant. [facility] [place] [address] Saphenous Vein Mapping, Bilat 07/10/20 1320 MR#: [id number] Name:JARAD WOOD [facility] #:[id number] : 1935 85From:Tim Lundy MD Attending Dr: Dr. Elaina Wu, DOStatus: REG CLI Ordering Dr: Elaina Wu DODate: 07/10/20 Location:CVSSex: Admitted: Reason For Study: CKD Right Arm Left Arm Right Cephalic Vein at the wrist measures Left Cephalic Vein at the wrist measures 0.31 x 0.35 cm. 0.30 x 0.36 cm. Right Cephalic Vein in the forearm measures Left Cephalic Vein in the forearm measures 0.31 x 0.32 cm. 0.24 x 0.24 cm. Right Cephalic Vein below antecub measures Left Cephalic Vein below antecub measures 0.31 x 0.33 cm. 0.29 x 0.29 cm. Right Cephalic Vein above antecub measures Left Cephalic Vein above antecub measures 0.43 x 0.52 cm. 0.46 x 0.46 cm. Right Cephalic Vein mid bicep measures 0.42 Left Cephalic Vein at mid bicep measures x 0.43 cm. 0.46 x 0.45 cm. Right Cephalic Vein at the shoulder measures Left Cephalic Vein at the shoulder measures 0.46 x 0.46 cm. 0.53 x 0.53 cm. Cephalic branch mid forearm measures 0.19 x Basilic vein at origin measures 0.36 x 0.39 0.20 cm. cm. Cephalic branch above antecube measures 0.34 Basilic vein at bicep measures 0.35 x 0.38 x 0.33 cm. cm. Right Basilic Vein at the origin measures Basilic vein above antecub measures 0.40 x 0.54 x 0.55 cm. 0.43 cm. Right Basilic Vein mid bicep measures 0.40 x Left Brachial artery measures 0.43 x 0.43 cm 0.44 cm. with a velocity of 79.6 cm/sec. Right Basilic Vein above antecub measures Left Radial artery measures 0.28 x 0.28 cm 0.47 x 0.46 cm. with a velocity of 69.8 cm/sec. Right Brachial artery measures 0.51 x 0.48 cm with a velocity of 60.9 cm/sec. Right Radial artery measures 0.27 x 0.29 cm with a velocity of 66.1 cm/sec. Interpretation Summary Patent and compressible bilateral upper extremity cephalic and basilic veins with dimensions as noted. Normal diameter and flow bilateral brachial and radial arteries Ordering Physician: Elaina Wu Referring Physician: Alex Gupta Performed By: Maryellen Hubbard RVT ? 07/10/201711 Date Tim Lundy MD HPI HPI HPI: JARAD WOOD, is a 85 M who presents to the office today for ROS General General: No weight change, appetite, fatigue, colon cancer, breast cancer or weakness HEENT HEENT: No difficulty swallowing, eye injury, eye surgery, swollen glands or hoarseness Endo Endocrine: No thyroid disease, diabetes mellitus, thyroid cancer, Hair loss, heat intolerance or cold intolerance Skin Skin: No rash or changing moles Breast Breast: No left breast lump, right breast lump, nipple discharge, breast pain, abnormal mammogram, abnormal US or breast enlargement Musc Musculoskeletal: No back problems, arthritis, rheumatoid arthritis, gout or joint pain Cardio Cardiovascular: Yes heart disease, high blood pressure and heart stent; no murmur, pacemaker, atrial fibrillation, heart attack, palpitations, shortness of breat with exertion or chest pain Psych Psychiatric: No depression, anxiety or hearing voices Resp Respiratory: No shortness of breath, No sleep apnea, No cough, No COPD, No asthma, No emphysema, No wheezing Gastro Gastrointestinal: No abdominal pain, No nausea or vomiting, No diarrhea, No constipation, No blood in stool, No acid reflux, No hemorrhoids, No ulcers, No gallbladder problem, No black,tarry stools Valentín Hematologic: No blood thinners, No blood disorders, No bleeding, No anemia, No blood clots Neuro Neurologic: No weakness Exam Const General: comfortable, no acute distress Nutritional Appearance: average body habitus Orientation: awake Other: Patient is mumbling that he does not want pain. He states he does not want his left forearm worked up on. Eyes General: appearance normal, both eyes and all related structures Neck Other: Notable kyphosis Chest Breast Palpation: No nipple discharge Resp Effort & Inspection: normal respiratory effort Auscultation: clear to auscultation bilaterally Cardio Rate: regular rate Rhythm: regular rhythm Heart Sounds: no murmurs GI Palpation: soft Other: Distended, nontender Neuro Other: Markedly hard of hearing. Extrem Other: Bilateral lower extremity edema noted 3+ left radial pulse. 3+ left brachial pulse. Slightly tortuous left forearm cephalic vein patent and compressible. Adequate left upper arm cephalic vein. Psych Appearance: grossly normal Assessment & Plan Problems 1. Chronic renal failure, stage 4 (severe) N18.4 Plan 85-year-old gentleman with stage IV chronic renal insufficiency. Request has been made for creation of arteriovenous hemodialysis fistula. The patient is right arm dominant. He absolutely declines having left forearm surgery. He constantly wears a watch at the site of intended surgery. I therefore propose for him a left upper arm brachial cephalic AV fistula. I have discussed technique, benefit, risk and alternatives. The patient's as noted particularly was able to converse. At the conclusion of the appointment however she was completely unsure as to whether here she would want to proceed. I propose for the patient a left upper arm brachiocephalic arteriovenous fistula creation and I have discussed with the patient and his the technique, benefit, risk, alternatives. Absolutely no guarantees of success have been offered. They are aware that will require a period of maturation. They are aware that further intervention may be required. He has had an opportunity to ask and have questions answered. We will schedule and proceed at his discretion. I appreciate the ongoing opportunity of assisting with his surgical care. Copy: Dr. Elaina Lundy M.D., F.A.C.S. Coding Level of Care Code 83144 Diagnoses Chronic renal failure, stage 4 (severe) N18.4 Chronic kidney disease stage: stage 4 (sara HPI HPI HPI: JARAD WOOD, is a 85 M who presents to the office today for ROS General General: No weight change, appetite, fatigue, colon cancer, breast cancer or weakness HEENT HEENT: No difficulty swallowing, eye injury, eye surgery, swollen glands or hoarseness Endo Endocrine: No thyroid disease, diabetes mellitus, thyroid cancer, Hair loss, heat intolerance or cold intolerance Skin Skin: No rash or changing moles Breast Breast: No left breast lump, right breast lump, nipple discharge, breast pain, abnormal mammogram, abnormal US or breast enlargement Musc Musculoskeletal: No back problems, arthritis, rheumatoid arthritis, gout or joint pain Cardio Cardiovascular: Yes heart disease, high blood pressure and heart stent; no murmur, pacemaker, atrial fibrillation, heart attack, palpitations, shortness of breat with exertion or chest pain Psych Psychiatric: No depression, anxiety or hearing voices Resp Respiratory: No shortness of breath, No sleep apnea, No cough, No COPD, No asthma, No emphysema, No wheezing Gastro Gastrointestinal: No abdominal pain, No nausea or vomiting, No diarrhea, No constipation, No blood in stool, No acid reflux, No hemorrhoids, No ulcers, No gallbladder problem, No black,tarry stools Valentín Hematologic: No blood thinners, No blood disorders, No bleeding, No anemia, No blood clots Neuro Neurologic: No weakness Exam Chest Breast Palpation: No nipple discharge Cardio Heart Sounds: no murmurs Coding Level of Care Code Off vis,est,level 2 I have re-examined the patient. There are no clinical changes since date of exam. Procedure Criteria Procedure Type: Elective COVID Risk Discussion: The surgeon/proceduralist and patient have discussed in detail the risk of exposure to and/or potential harm posed by the COVID-19 virus with having a surgery/procedure at this time versus the risk of delaying the surgery/procedure. It is not possible to know either the risk of delaying the surgery or procedure or chance of getting an infection with perfect accuracy, but a joint decision was made between the patient and the surgeon/proceduralist to proceed at this time with the scheduled surgery/procedure as indicated on the consent form.
[2020-08-30 06:23] VITALS: BP 112/74; PULSE 69; RESP 18; TEMP 36.7; O2SAT 99; BMI 29.1
[2020-08-30 06:41] LABS: Bedside Glucose 108 mg/dL (70-110)
[2020-08-30] MEDS: 0.45% Normal Saline 1,000 ML 30 ML IV (06:44)
[2020-08-30] MEDS: Heparin Injection (Vial) 5,000 UNIT/ML VIAL 5000 UNIT (07:00)
--- NOTE | 2020-08-30 08:48 | OP.PCM_ITS ---
Problem List (1) Chronic renal failure Status: Chronic Qualifiers: Report of Operation Date of Procedure: 08/30/20 Pre-Operative Diagnosis: Stage IV chronic renal insufficiency Post-Operative Diagnosis: Same Surgery/Procedure Performed:: Left upper extremity brachial to cephalic arteriovenous hemodialysis fistula creation Description of Surgical Findings:: Timeout and informed consent was obtained. 85-year-old gentleman was taken to the operating placed on table underwent monitored anesthesia care. The left upper extremity was sterilely prepped and draped. 1% lidocaine mixed 50-50 with 0.5% Marcaine was used as a local anesthetic. Throughout the procedure total 10 cc was used. Ultrasound was used to map the course of the left upper arm cephalic vein close to the antecubital space. A slightly oblique incision was made after local was instilled. Sharp blunt dissection was used to identify the cephalic vein. It was dissected free proximally and distally and slightly mobilized. Then sharp and blunt dissection was used to identify the brachial artery and Vesseloops applied. The patient received 8000 and's of heparin. The cephalic vein was ligated distally with 2 metal clips. The vein was spatulated. Peripheral vascular clamps were placed on the brachial artery. A 11 blade was used to make an arteriotomy which was extended with Sarkar scissors. A end-to-side venous to arterial anastomosis was created with a running 7-0 Prolene. To initiate that a parachute technique was used. Very nice approximation and good positioning was achieved. There was good mobilization of the cephalic vein allowing for a nice curvilinear position. Hemostasis with further achieved by placing a fall small piece of Surgicel. The patient received 20 mg of protamine as reversal. The wound was closed with interrupted 3-0 Vicryl subdermal stitches and then a running septic or 4-0 Monocryl. Steri- Strips Telfa and a tape dressings applied. Sponge and instrument and needle counts were reported to surgically correct. Blood loss minimal. Specimens none. Drains none. Hand was inspected was noted to be viable and there is a 2+ radial pulse. The patient was taken the recovery area in satisfactory edition without apparent complication Tim Lundy M.D., F.A.C.S. Type of Anesthesia:: Local MAC Anesthesiologist: Marques Jamison
[2020-08-30] MEDS: Bupivacaine Mpf 0.5% 30 ML VIAL (08:49)
--- NOTE | 2020-08-30 08:51 | DCINST_ITS ---
Discharge Diet: Renal Diet Discharge Activity: May Not Drive - for 2-3 days or while taking narcotic pain medications., May Shower, May Take a Tub Bath - in 5 days. Lifting Restrictions: 5 pounds Keep extremity elevated above heart level: - - Keep arm elevated above the heart level for 3 days. Additional Activity Instructions:: Exercise hand vigorously with a stress ball. Call your doctor if your incision/area has: Continuous Slow Oozing, Sudden Increased Bleeding - apply pressure and call your doctor., Increased Pain/ Swelling, Increased Redness, Foul Smelling Discharge Call your doctor if you observe: Fever of 101 or Higher Suture Line Care: Avoid Pulling/Pushing, Avoid Pinching/Bending Cleanse incision/area with: Keep Dressing Clean & Dry Additional Dressing/Incision Instructions:: Change or remove dressing in two days. May protect with a gauze bandaid. Exercise your left hand with a stress ball to help encourage blood flow and maturation of the fistula Allergies/Adverse Reactions: Allergies ciprofloxacin Allergy (Verified 08/23/20 13:08) Itching Medications to take at Discharge Atorvastatin Calcium 40 mg PO QHS 04/22/17 Cholecalciferol (Vitamin D3) [Vitamin D3] 1,000 unit PO DAILY 04/22/17 Pantoprazole Sodium [Protonix] 20 mg PO DAILY 04/22/17 metoprolol tartrate 25 mg tablet 25 mg PO BID #180 tab 03/13/20 tamsulosin 0.4 mg capsule 0.4 mg PO QHS 05/12/20 Primary Care Physician: Alex Gupta MD [Primary Care Provider] - Test Results: Test results from this visit will be discussed in further detail at your follow- up appointment, if applicable. Please Follow Up With: Tim Lundy MD - [phone] When: Call to make an appointment for suture removal and follow up in 1 week.
[2020-08-30 09:19] VITALS: BP 105/59; BP 112/74; PULSE 62; RESP 16; TEMP 36.1; O2SAT 98
[2020-08-30 09:30] VITALS: BP 112/74; BP 98/65; PULSE 62; RESP 16; O2SAT 96
[2020-08-30 09:45] VITALS: BP 102/57; BP 112/74; PULSE 59; RESP 16; O2SAT 95
[2020-08-30 09:56] VITALS: BP 101/57; BP 112/74; PULSE 59; RESP 16; TEMP 36.1; O2SAT 97
[2020-08-30 10:51] VITALS: BP 102/58; BP 112/74; PULSE 67; RESP 16; TEMP 36.4; O2SAT 97
--- NOTE | 2020-08-30 11:09 | SUR.PHASEII ---
UPDATED DR MOHAN OF NO S/S BLEEDING OR HEMATOMA, LOUD BRUIT AUSCULTATED, DENIES PAIN, MAKING URINE, VSS. ORDER TO D/C HOME.
== END 2020-08-30 11:11 | disposition home or self-care (01) ==
LOC: SDC 05:35 → AC 05:36
PROVIDERS: Anesthesiology; PCP Family Medicine; Referring Provider Surgery; Visit Provider Surgery
PROC: (CPT 36818; principal; 2020-08-30 07:15)
DX: I12.9 Hypertensive chronic kidney disease with stage 1 through stage 4 chronic kidney disease, or unspecified chronic kidney disease (principal); N18.4 Chronic kidney disease, stage 4 (severe); Z11.59 Encounter for screening for other viral diseases; E78.00 Pure hypercholesterolemia, unspecified; I25.10 Atherosclerotic heart disease of native coronary artery without angina pectoris; I47.2 Ventricular tachycardia; I25.2 Old myocardial infarction; K21.9 Gastro-esophageal reflux disease without esophagitis; N40.0 Benign prostatic hyperplasia without lower urinary tract symptoms; Z86.2 Personal history of diseases of the blood and blood-forming organs and certain disorders involving the immune mechanism; Z95.5 Presence of coronary angioplasty implant and graft; Z79.899 Other long term (current) drug therapy; Z87.891 Personal history of nicotine dependence
CPT/HCPCS: 36818; 36415; 80048; 82962; 85027; 87635; 93005; C9803; J7030; U0003

== ENCOUNTER → 2020-11-08 15:55 | Outpatient (CLI) | payer MEDICARE, SELFPAY ==
[2020-06-05 08:56] VITALS: BMI 29.7
[2020-11-08 17:07] LABS: Hematocrit 36.3 % (40-54); Hemoglobin 11.5 g/dL (13.0-16.5); Mean Corp Hgb Conc 31.7 g/dL (32-36); Mean Corpuscular Hgb 29.4 pg (27.0-32.0); Mean Corpuscular Volume 92.8 fL (80-94); Mean Platelet Vol. 10.1 fl (6.2-12.0); Platelet Count 289 K/mm3 (150-450); RBC Distribution Width CV 12.9 % (11.6-14.6); RBC Distribution Width SD 43.7 fl (35.1-43.9); Red Blood Count 3.91 M/mm3 (4.6-6.2)
[2020-11-08 17:26] LABS: Albumin, Serum 3.3 g/dL (3.2-5.0); BUN 34 mg/dL (7-18); BUN/Creat Ratio 10.9 RATIO (10-20); Calcium,Total 7.5 mg/dL (8.5-10.1); Chloride 111 mmol/L (98-107); Creatinine, Serum 3.12 mg/dL (0.70-1.30); EST Glomerular Filtration Rate 20 mL/min (>60); Est Glom Filt Rate - Afr Amer 25 mL/min (>60); Ferritin 9 ng/mL (26-388); Glucose 142 mg/dL (74-106); Iron 41 ug/dL (65-175); Iron Binding Capacity,Total 325 ug/dL (250-450); PERCENT IRON SATURATION 12.6 % (15.0-55.0); Phosphorus 3.1 mg/dL (2.5-4.9); Potassium 4.1 mmol/L (3.5-5.1); Sodium Level 140 mmol/L (136-145); Vitamin D,25 Hydroxy 27.4 ng/mL
== END ==
PROVIDERS: PCP Family Medicine; Referring Provider Internal Medicine Nephrology; Visit Provider Internal Medicine Nephrology
DX: D64.9 Anemia, unspecified (principal); E55.9 Vitamin D deficiency, unspecified; N18.4 Chronic kidney disease, stage 4 (severe); N25.81 Secondary hyperparathyroidism of renal origin
CPT/HCPCS: 36415; 80069; 82306; 82728; 83540; 83550; 83970; 85027

== ENCOUNTER 2020-11-14 21:17 | Emergency (ER) | payer MEDICARE, SELFPAY ==
[2020-11-14 21:19] VITALS: BP 185/73; PULSE 57; RESP 18; TEMP 35.9; O2SAT 95; BMI 29.0
--- NOTE | 2020-11-14 21:46 | ED.RN ---
GERMAIN CATHETER ADVANCED INTO PROPER PLACEMENT. URINE BEGAN DRAINING IMMEDIATELY WHEN ADVANCED.
--- NOTE | 2020-11-14 21:57 | ED.VIS.GEN ---
History of Present Illness Chief Complaint: Badillo C/O Narrative: This patient is an 85-year-old male who presents with a Badillo catheter malfunction. He had his Badillo catheter changed today and it is not draining. This was advanced by nursing staff here and is now draining easily. Patient was complaining of some suprapubic pressure at the time of presentation and this has resolved with adjustment of the Badillo catheter. Past Medical History - Allergies and Home Meds Allergies/Adverse Reactions: Allergies ciprofloxacin Allergy (Verified 11/14/20 21:22) Itching Primary Care Physician: Alex Gupta MD [Primary Care Provider] - Past Medical History: - - BPH Surgical History: coronary bypass surgery Smoking Status: Former smoker - Family History Maternal Family History: Family History (Last Reviewed 09/20/20 @ 13:23 by Barb Perdomo) Father COPD (chronic obstructive pulmonary disease) Mother No problems noted. Family History: Reports: No pertinent history Review of Systems All systems negative except as indicated General: Denies: Fever Cardiovascular: Denies: Chest pain Respiratory: Denies: Dyspnea Gastrointestinal: Reports: - - Suprapubic pressure. Denies: Nausea, Vomiting Skin: Denies: Rash Neurological: Denies: Headache Allergy: Denies: Uticaria Physical Exam Vital Signs/Narrative: Vital Signs Temp Pulse Resp BP Pulse Ox 11/14/20 21:19 96.6 F L 57 L 18 185/73 H 95 Inital Vital Signs reviewed: Yes General: Well nourished Head: Normocephalic Eyes: EOMI ENT: Moist mucous membranes Neck: Supple Cardiovascular: Regular rate Respiratory: No distress Abdomen: Soft, Nontender : - - Badillo catheter in place draining yellow urine no gross hematuria Skin: Normal color Neurological: Alert Psychological: Normal affect Diagnostic/Tx/Re-eval - Medical Decision Making Catheter was advanced and is now draining normally. No further diagnostic evaluation or intervention necessary and patient was discharged to follow-up as an outpatient. ED Disposition - Plan for ED Patient: Disposition: Home or Assisted Living Diagnosis: Malfunction of Badillo catheter Instructions: ED Badillo Catheter, Care Referrals: Alex Gupta MD [Primary Care Provider] -
== END 2020-11-14 22:09 | disposition home or self-care (01) ==
PROVIDERS: Emergency Provider Emergency Medicine; PCP Family Medicine
DX: T83.098A Other mechanical complication of other urinary catheter, initial encounter (principal); N40.0 Benign prostatic hyperplasia without lower urinary tract symptoms; Z79.899 Other long term (current) drug therapy; Z87.891 Personal history of nicotine dependence
CPT/HCPCS: 99282

== ENCOUNTER → 2020-11-30 13:58 | Outpatient (CLI) | payer MEDICARE, SELFPAY ==
[2020-11-14 21:19] VITALS: BMI 29.0
[2020-11-30] MEDS: 0.9% NaCl Peripheral Flush Adult/Peds IV (14:28)
[2020-11-30] MEDS: 0.9% NaCl IVPB Med Flush (250 mL) 15 ML IV (14:28)
[2020-11-30 14:30] VITALS: BP 107/59; PULSE 76; RESP 16; TEMP 36.2; O2SAT 97; BMI 29.0
[2020-11-30 15:41] VITALS: BP 92/51; PULSE 67; RESP 18; TEMP 36.3; O2SAT 97
== END ==
PROVIDERS: PCP Family Medicine; Referring Provider Internal Medicine Nephrology; Visit Provider Internal Medicine Nephrology
DX: D64.9 Anemia, unspecified (principal)
CPT/HCPCS: 96365; J1756; J7050; A4216

== ENCOUNTER 2020-12-06 05:56 | Day surgery (SDC) | payer MEDICARE, SELFPAY ==
[2020-11-30 14:30] VITALS: BMI 29.0
[2020-12-06] VITALS (7 sets, daily range): BP systolic 88–108; BP diastolic 49–58; PULSE 65–78; RESP 14–20; TEMP 36–36.7; O2SAT 95–98; BMI 29.5
[2020-12-06] MEDS: Lactated Ringers 1,000 ML 100 ML IV (06:40)
--- NOTE | 2020-12-06 07:49 | PCM.HP.STD ---
Problem List (1) Chronic renal failure Status: Chronic Qualifiers: History of Present Illness Date of Admission: 12/06/20 Chief Complaint: Presents for stent removal The patient is a 85 year old male has a history of chronic renal insufficiency on the left side he had a stent but at this point we could not place a stent back in because of the very tortuous ureter so he only has a stent in the right side of the right side unless review of the CAT scan is not obstructive so organ to just remove the stent on the right side. Past Medical History Past Medical History (Chronic Problems): Chronic Problems (Last Reviewed 09/20/20 @ 13:23 by Barb Perdomo) Chronic renal failure (Chronic) Pure hypercholesterolemia (Chronic) Presence of stent in coronary artery (Chronic ~08/15/11) PTCA/BMS in prox LAD 08/15/11 Aortocoronary bypass status (Chronic ~02/06/12) CABG x1- SILVEIRA to LAD off pump @ [facility] 02/06/12 Atherosclerotic heart disease of [place] coronary artery without angina pectoris (Chronic) CABG x1- SILVEIRA to LAD off pump @ [facility] 02/06/12 Sinus tachycardia (Chronic) Premature ventricular contractions (Chronic) Nonsustained paroxysmal ventricular tachycardia (Chronic) Abnormal electrocardiogram during exercise stress test (Chronic) 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) Z79.899 History of PSVT (paroxysmal supraventricular tachycardia) (Chronic) Z86.79 Fatigue (Chronic) R53.83 Chest discomfort (Chronic) R07.89 Essential (primary) hypertension (Chronic) I10 BPH (benign prostatic hyperplasia) N40.0 Chronic renal failure, stage 4 (severe) N18.4 Left inguinal hernia K40.90 Normochromic normocytic anemia D64.9 LEWIS (acute kidney injury) (Inactive) N17.9 Atherosclerosis of coronary artery bypass graft without angina pectoris (Inactive) I25.810 02/06/2012 @ [facility] BPH (benign prostatic hypertrophy) (Inactive) N40.0 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 Chronic indwelling [place] catheter (Inactive) Z92.89 Chronic renal failure, stage 4 (severe) (Inactive) N18.4 Coronary artery disease (Inactive) I25.10 Dyslipidemia (Inactive) E78.5 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 Hydronephrosis, left (Inactive) N13.30 Hydroureter, left (Inactive) N13.4 Hyperlipidemia (Inactive) E78.5 Hypocalcemia (Inactive) E83.51 Hypophosphatemia (Inactive) E83.39 Left inguinal hernia (Inactive) K40.90 Normochromic normocytic anemia (Inactive) D64.9 Allergies ciprofloxacin Allergy (Verified 11/30/20 09:08) Itching Home Medications: Ambulatory Orders Medication Instructions Recorded RX: Atorvastatin Calcium 40 mg PO QHS 04/22/17 RX: Cholecalciferol (Vitamin D3) 1,000 unit PO DAILY 04/22/17 [Vitamin D3] RX: Pantoprazole Sodium [Protonix] 20 mg PO DAILY 04/22/17 metoprolol tartrate 25 mg tablet 25 mg PO BID #180 tab 03/13/20 tamsulosin 0.4 mg capsule 0.4 mg PO QHS 05/12/20 Surgical History: Surgical History (Last Updated 09/20/20 @ 13:24 by Barb Perdomo) Presence of stent in coronary artery (Chronic) Onset Date: ~08/15/11 Z95.5 PTCA/BMS in prox LAD 08/15/11 Aortocoronary bypass status (Chronic) Onset Date: ~02/06/12 Z95.1 CABG x1- SILVEIRA to LAD off pump @ [facility] 02/06/12 history left AV fistula creation Onset Date: ~08/30/20 history cysto and insertion stent history cysto and removal stent Hx of CABG (Inactive) Surgical History: coronary bypass surgery Psychiatric History: No pertinent psych hx Smoking Status: Former smoker Tobacco Use: Non-smoker - *Family History Maternal Family History: Family History (Last Reviewed 09/20/20 @ 13:23 by Barb Perdomo) Father COPD (chronic obstructive pulmonary disease) Mother No problems noted. History Items: No pertinent history Review of Systems Constitutional: Denies: Chills, Fever, Weight Change HEENT: Denies: Head Aches, Sinus Congestion, Sinus Drainage Cardiovascular: Denies: Chest Pain, Palpitations Respiratory: Denies: Cough, Shortness of breath at rest, Sputum production Gastrointestinal: Denies: Abdominal Pain, Nausea, Vomiting Genitourinary: Denies: Dysuria Musculoskeletal: Denies: Joint Pain, Joint Tenderness Skin: Denies: Rash, Wounds Neurological: Denies: Numbness, Tingling, Focal weakness Psychiatric: Denies: Anxiety, Depression, Homicidal Ideations, Suicidal Ideations Hematologic/ Lymphatic: Denies: Easy Bruising, Easy Bleeding VTE Information - Inpt Only VTE Present on Admission: No - Physical Exam Vitals/I&O's: Vital Signs Temp Pulse Resp BP Pulse Ox 97.6 F L 72 14 103/58 L 98 12/06/20 06:20 12/06/20 06:20 12/06/20 06:20 12/06/20 06:20 12/06/20 06:20 Oxygen Delivery Method Room Air Weight: 85.4 kg Body Mass Index (BMI) 29.5 General: Alert, Oriented x3, Cooperative HEENT: Atraumatic, PERRLA, EOMI, Normocephalic Neck: Supple, No JVD, Negative Carotid Bruits Lungs: Clear to auscultation, Normal air movement Cardiovascular: Regular rate, No murmurs Abdomen: Bowel Sounds Present, Soft, Non Tender Extremities: No edema, Capillary Refill Less than 3 Seconds Skin: No rashes, No breakdown Musculoskeletal: No Tenderness to Palpation of Joints or Extremities Neurological: Cranial nerves II-XII grossly intact Psych/Mental Status: Normal Affect, Appropriate Microbiology Past 72 Hours 12/05/20 11:15 Interface Orders SARS-CoV-2 Antigen (Rapid) - Final Current Medications Lactated Ringer's () 1,000 mls @ 100 mls/hr IV .Q10H TAQUERIA Last Admin: 12/06/20 06:40 Dose: 100 mls/hr Documented by: Assessment/Plan All Active Problems (Last Reviewed 09/20/20 @ 13:23 by Barb Perdomo) Bilateral hydronephrosis (Resolved) Hematuria (Resolved) History of syncope (Resolved) Hypernatremia (Resolved) Metabolic acidosis (Resolved) Sepsis (Resolved) Severe sepsis (Resolved) 85-year-old male plan for cystoscopy and stent removal on the right side.
[2020-12-06] MEDS: Cefazolin 2 GM in 0.9% Normal Saline 100 ML IV (07:51)
--- NOTE | 2020-12-06 07:51 | DCINST_ITS ---
Discharge Diet: No Restrictions Discharge Activity: Return to Normal Activity, May Not Drive - for 2 days. Additional Activity Instructions:: f you have a catheter, remove on ___. If you have any problems after catheter is removed, call [phone] and ask for your doctor to be paged. Please be aware that pain medications may cause nausea. You should typically eat light foods as you take your pain medication. Pain medication may cause constipation, if this is a problem for you, please discuss with your doctor. Allergies/Adverse Reactions: Allergies ciprofloxacin Allergy (Verified 11/30/20 09:08) Itching Medications to take at Discharge RX: Atorvastatin Calcium 40 mg PO QHS 04/22/17 RX: Cholecalciferol (Vitamin D3) [Vitamin D3] 1,000 unit PO DAILY 04/22/17 RX: Pantoprazole Sodium [Protonix] 20 mg PO DAILY 04/22/17 metoprolol tartrate 25 mg tablet 25 mg PO BID #180 tab 03/13/20 tamsulosin 0.4 mg capsule 0.4 mg PO QHS 05/12/20 Primary Care Physician: Alxe Gupta MD [Primary Care Provider] - Test Results: Test results from this visit will be discussed in further detail at your follow- up appointment, if applicable. Please Follow Up With: Guido Pantoja MD When: please call to make an appointment.
--- NOTE | 2020-12-06 07:52 | PCM.OPRPT ---
Problem List (1) Chronic renal failure Status: Chronic Qualifiers: Report of Operation Date of Procedure: 12/06/20 Pre-Operative Diagnosis: Right stent chronic, chronic kidney poor function Post-Operative Diagnosis: Same Surgery/Procedure Performed:: Stent removal and cystoscopy, right Description of Surgical Findings:: The patient's urethra and genitals were prepped and draped in usual sterile fashion. I went into the bladder with a 21 [place] rigid cystourethroscope. I grabbed the stent emanating from the right ureteral orifice and then gently remove the stent from the bladder. I then drained the patient's bladder. Type of Anesthesia:: Local MAC Drains: None - Admit VTE Documentation VTE Present on Admission: No
--- NOTE | 2020-12-06 09:33 | EKG12_ITS ---
Test Reason : PRE OP Blood Pressure : / mmHG Vent. Rate : 066 BPM Atrial Rate : 066 BPM P-R Int : 200 ms QRS Dur : 102 ms QT Int : 444 ms P-R-T Axes : 024 059 053 degrees QTc Int : 465 ms Sinus rhythm with frequent Premature ventricular complexes Otherwise normal ECG Confirmed by MEENAKSHI BALDERAS, ROSHAN ([id number]), editor continuity and script TOD DEVINE ([id number]) on 12/11/2020 11:21:21 AM Referred By: Guido Panotja Confirmed By:BRISEYDA ARRIETA MD
--- NOTE | 2020-12-06 09:39 | SUR.PHASEII ---
Addendum entered by Viridiana Bob 12/06/20 09:52: EKG SINUS RHYTHM WITH FREQUENT PVC, HR 66. MARCH D/C HOME PER DR QIU. Original Note: WHEN OBTAINING D/C VITALS, HR ON MONITOR READING 33, AUSCULATING/PALPATING 36 WITH ECTOPIC BEATS. DENIES ANY CHEST PAIN, SHORT OF BREATH, OR NAUSEA. NOTIFIED DR QIU WHO OBTAINED EKG.
== END 2020-12-06 09:54 | disposition home or self-care (01) ==
LOC: SDC 05:59 → AC 06:01
PROVIDERS: PCP Family Medicine; Referring Provider Urology; Visit Provider Urology
PROC: (CPT 52332; principal; 2020-12-06 07:50)
DX: Z46.6 Encounter for fitting and adjustment of urinary device (principal); I12.9 Hypertensive chronic kidney disease with stage 1 through stage 4 chronic kidney disease, or unspecified chronic kidney disease; N18.4 Chronic kidney disease, stage 4 (severe); Z20.828 Contact with and (suspected) exposure to other viral communicable diseases; N40.0 Benign prostatic hyperplasia without lower urinary tract symptoms; I25.10 Atherosclerotic heart disease of native coronary artery without angina pectoris; E78.00 Pure hypercholesterolemia, unspecified; K21.9 Gastro-esophageal reflux disease without esophagitis; Z86.19 Personal history of other infectious and parasitic diseases; Z86.2 Personal history of diseases of the blood and blood-forming organs and certain disorders involving the immune mechanism; Z95.1 Presence of aortocoronary bypass graft; Z79.899 Other long term (current) drug therapy; Z87.891 Personal history of nicotine dependence
CPT/HCPCS: 52310; 87426; 93005; C9803; J7120; J2405

== ENCOUNTER → 2020-12-08 14:15 | Outpatient (CLI) | payer MEDICARE, SELFPAY ==
[2020-11-14 21:19] VITALS: BMI 29.0
[2020-12-06 06:20] VITALS: BMI 29.5
[2020-12-08 14:24] VITALS: BP 125/58; PULSE 76; RESP 16; TEMP 36.6; O2SAT 100
[2020-12-08] MEDS: 0.9% NaCl Peripheral Flush Adult/Peds IV (14:27)
[2020-12-08] MEDS: 0.9% NaCl IVPB Med Flush (250 mL) 15 ML IV (14:32)
== END ==
LOC: MEDOUTP 14:15
PROVIDERS: PCP Family Medicine; Referring Provider Internal Medicine Nephrology; Visit Provider Internal Medicine Nephrology
DX: D64.9 Anemia, unspecified (principal)
CPT/HCPCS: 96365; J1756; J7050; A4216

== ENCOUNTER → 2020-12-14 13:42 | Outpatient (CLI) | payer MEDICARE, SELFPAY ==
[2020-11-14 21:19] VITALS: BMI 29.0
[2020-12-06 06:20] VITALS: BMI 29.5
[2020-12-14 14:00] VITALS: BP 105/52; PULSE 68; RESP 16; TEMP 36.2; O2SAT 98; BMI 29.5
[2020-12-14] MEDS: 0.9% NaCl Peripheral Flush Adult/Peds IV (14:09)
[2020-12-14] MEDS: 0.9% NaCl IVPB Med Flush (250 mL) 15 ML IV (14:09)
[2020-12-14 14:59] VITALS: BP 101/54; PULSE 73; RESP 18; O2SAT 98
== END ==
LOC: MEDOUTP 13:43
PROVIDERS: PCP Family Medicine; Referring Provider Internal Medicine Nephrology; Visit Provider Internal Medicine Nephrology
DX: D64.9 Anemia, unspecified (principal)
CPT/HCPCS: 96365; J1756; J7050; A4216

== ENCOUNTER → 2020-12-29 13:41 | Outpatient (CLI) | payer MEDICARE, SELFPAY ==
[2020-12-14 14:00] VITALS: BMI 29.5
[2020-12-29] MEDS: 0.9% NaCl IVPB Med Flush (250 mL) 15 ML IV (14:05)
[2020-12-29] MEDS: 0.9% NaCl Peripheral Flush Adult/Peds IV (14:05)
[2020-12-29 14:07] VITALS: BP 113/52; PULSE 70; RESP 16; TEMP 36.1; O2SAT 97; BMI 29.5
[2020-12-29 14:52] VITALS: BP 125/97; PULSE 61; RESP 16; TEMP 35.9; O2SAT 99
== END ==
LOC: MEDOUTP 13:41
PROVIDERS: PCP Family Medicine; Referring Provider Internal Medicine Nephrology; Visit Provider Internal Medicine Nephrology
DX: D64.9 Anemia, unspecified (principal)
CPT/HCPCS: 96365; J1756; J7050; A4216

== ENCOUNTER → 2021-01-04 13:48 | Outpatient (CLI) | payer MEDICARE, SELFPAY ==
[2020-12-29 14:07] VITALS: BMI 29.5
[2021-01-04] MEDS: 0.9% NaCl IVPB Med Flush (250 mL) 15 ML IV (14:08)
[2021-01-04] MEDS: 0.9% NaCl Peripheral Flush Adult/Peds IV (14:09)
[2021-01-04 14:10] VITALS: BP 128/58; PULSE 80; RESP 16; TEMP 36.1; O2SAT 100; BMI 29.5
[2021-01-04 15:03] VITALS: BP 112/52; PULSE 82
== END ==
LOC: MEDOUTP 13:49
PROVIDERS: PCP Family Medicine; Referring Provider Internal Medicine Nephrology; Visit Provider Internal Medicine Nephrology
DX: D64.9 Anemia, unspecified (principal)
CPT/HCPCS: 96365; J1756; J7050; A4216

== ENCOUNTER → 2021-02-21 16:04 | Outpatient (CLI) | payer MEDICARE, SELFPAY ==
[2021-01-04 14:10] VITALS: BMI 29.5
[2021-02-21 15:31] VITALS: BMI 29.4
[2021-02-21 16:49] LABS: Hematocrit 40.9 % (40-54); Hemoglobin 13.4 g/dL (13.0-16.5); Mean Corp Hgb Conc 32.8 g/dL (32-36); Mean Corpuscular Hgb 30.2 pg (27.0-32.0); Mean Corpuscular Volume 92.1 fL (80-94); Mean Platelet Vol. 9.5 fl (6.2-12.0); Platelet Count 290 K/mm3 (150-450); RBC Distribution Width CV 14.2 % (11.6-14.6); RBC Distribution Width SD 47.8 fl (35.1-43.9); Red Blood Count 4.44 M/mm3 (4.6-6.2); White Blood Count 5.5 K/mm3 (4.4-11.0)
[2021-02-21 17:29] LABS: Albumin, Serum 3.4 g/dL (3.2-5.0); BUN 31 mg/dL (7-18); BUN/Creat Ratio 10.1 RATIO (10-20); Calcium,Total 7.7 mg/dL (8.5-10.1); Chloride 113 mmol/L (98-107); Creatinine, Serum 3.06 mg/dL (0.70-1.30); EST Glomerular Filtration Rate 21 mL/min (>60); Est Glom Filt Rate - Afr Amer 25 mL/min (>60); Ferritin 55 ng/mL (26-388); Glucose 115 mg/dL (74-106); Iron 101 ug/dL (65-175); Iron Binding Capacity,Total 306 ug/dL (250-450); Phosphorus 3.3 mg/dL (2.5-4.9); Potassium 4.5 mmol/L (3.5-5.1); Sodium Level 138 mmol/L (136-145)
[2021-02-21 17:31] LABS: Vitamin D,25 Hydroxy 31.6 ng/mL
[2021-02-22 09:04] LABS: PTHIN 225.5 pg/mL (18.4-80.1)
== END ==
PROVIDERS: PCP Family Medicine; Referring Provider Internal Medicine Nephrology; Visit Provider Internal Medicine Nephrology
DX: D64.9 Anemia, unspecified (principal); N18.4 Chronic kidney disease, stage 4 (severe); N25.81 Secondary hyperparathyroidism of renal origin
CPT/HCPCS: 36415; 80069; 82306; 82728; 83540; 83550; 83970; 85027

== ENCOUNTER → 2021-04-30 14:39 | Outpatient (CLI) | payer MEDICARE, SELFPAY ==
[2021-02-21 15:31] VITALS: BMI 29.4
[2021-04-30 15:20] LABS: Hematocrit 38.7 % (40-54); Mean Corp Hgb Conc 33.6 g/dL (32-36); Mean Corpuscular Hgb 31.7 pg (27.0-32.0); Mean Corpuscular Volume 94.4 fL (80-94); Mean Platelet Vol. 9.4 fl (6.2-12.0); Platelet Count 258 K/mm3 (150-450); RBC Distribution Width CV 12.8 % (11.6-14.6); RBC Distribution Width SD 43.9 fl (35.1-43.9); White Blood Count 5.2 K/mm3 (4.4-11.0)
[2021-04-30 16:15] LABS: Vitamin D,25 Hydroxy 36.7 ng/mL
[2021-04-30 16:19] LABS: Albumin, Serum 3.2 g/dL (3.2-5.0); BUN 31 mg/dL (7-18); BUN/Creat Ratio 9.7 RATIO (10-20); Calcium,Total 7.8 mg/dL (8.5-10.1); Chloride 111 mmol/L (98-107); Creatinine, Serum 3.19 mg/dL (0.70-1.30); EST Glomerular Filtration Rate 20 mL/min (>60); Est Glom Filt Rate - Afr Amer 24 mL/min (>60); Ferritin 59 ng/mL (26-388); Glucose 168 mg/dL (74-106); Iron 124 ug/dL (65-175); Iron Binding Capacity,Total 235 ug/dL (250-450); PERCENT IRON SATURATION 52.8 % (15.0-55.0); Potassium 4.6 mmol/L (3.5-5.1); Sodium Level 141 mmol/L (136-145)
[2021-05-01 07:58] LABS: PTHIN 159.3 pg/mL (18.4-80.1)
== END ==
PROVIDERS: PCP Family Medicine; Visit Provider Internal Medicine Nephrology
DX: N18.4 Chronic kidney disease, stage 4 (severe) (principal); N25.81 Secondary hyperparathyroidism of renal origin; D64.9 Anemia, unspecified; E55.9 Vitamin D deficiency, unspecified
CPT/HCPCS: 36415; 80069; 82306; 82728; 83540; 83550; 83970; 85027

== ENCOUNTER → 2021-06-06 15:52 | Outpatient (CLI) | payer MEDICARE, SELFPAY ==
[2021-02-21 15:31] VITALS: BMI 29.4
[2021-06-06 18:18] LABS: ALB/GLOB Ratio 0.9 RATIO (0.9-2.4); AST(SGOT) 12 U/L (15-37); Alanine Aminotransfer ALT/SGPT 19 U/L (16-61); Albumin, Serum 3.3 g/dL (3.2-5.0); Alkaline Phosphatase 91 U/L (45-117); Anion Gap 7 (5-15); BUN 30 mg/dL (7-18); BUN/Creat Ratio 9.9 RATIO (10-20); Calcium,Total 7.3 mg/dL (8.5-10.1); Chloride 112 mmol/L (98-107); Cholesterol 102 mg/dL (200); Creatinine, Serum 3.02 mg/dL (0.70-1.30); EST Glomerular Filtration Rate 21 mL/min (>60); Est Glom Filt Rate - Afr Amer 26 mL/min (>60); Globulin 3.5 g/dL (2.2-4.2); Glucose 137 mg/dL (74-106); High Density Lipoprotein 33 mg/dL; Potassium 4.2 mmol/L (3.5-5.1); Protein, Total 6.8 g/dL (6.4-8.2); Sodium Level 138 mmol/L (136-145); Triglycerides 83 mg/dL; Very Low Density Lipoprotein 17 mg/dL (5-40)
== END ==
PROVIDERS: PCP Family Medicine; Referring Provider Family Medicine; Visit Provider Family Medicine
DX: E78.00 Pure hypercholesterolemia, unspecified (principal)
CPT/HCPCS: 36415; 80053; 80061

== ENCOUNTER → 2021-08-27 15:07 | Outpatient (CLI) | payer MEDICARE, SELFPAY ==
[2021-02-21 15:31] VITALS: BMI 29.4
[2021-08-27 16:03] LABS: Hematocrit 38.2 % (40-54); Hemoglobin 12.3 g/dL (13.0-16.5); Mean Corp Hgb Conc 32.2 g/dL (32-36); Mean Corpuscular Volume 96.2 fL (80-94); Mean Platelet Vol. 9.7 fl (6.2-12.0); Platelet Count 256 K/mm3 (150-450); RBC Distribution Width CV 12.8 % (11.6-14.6); RBC Distribution Width SD 45.5 fl (35.1-43.9); Red Blood Count 3.97 M/mm3 (4.6-6.2); White Blood Count 4.7 K/mm3 (4.4-11.0)
[2021-08-27 16:17] LABS: Albumin, Serum 2.8 g/dL (3.2-5.0); BUN 35 mg/dL (7-18); Calcium,Total 7.7 mg/dL (8.5-10.1); Chloride 113 mmol/L (98-107); Creatinine, Serum 3.49 mg/dL (0.70-1.30); EST Glomerular Filtration Rate 18 mL/min (>60); Est Glom Filt Rate - Afr Amer 22 mL/min (>60); Glucose 145 mg/dL (74-106); Iron 108 ug/dL (65-175); Iron Binding Capacity,Total 196 ug/dL (250-450); PERCENT IRON SATURATION 55.1 % (15.0-55.0); Phosphorus 3.1 mg/dL (2.5-4.9); Potassium 4.3 mmol/L (3.5-5.1); Sodium Level 141 mmol/L (136-145)
[2021-08-27 16:23] LABS: Vitamin D,25 Hydroxy 32.8 ng/mL
[2021-08-28 07:28] LABS: PTHIN 177.4 pg/mL (18.4-80.1)
[2021-08-28 09:02] LABS: Ferritin 130 ng/mL (26-388)
== END ==
PROVIDERS: PCP Family Medicine; Referring Provider Internal Medicine Nephrology; Visit Provider Internal Medicine Nephrology
DX: N18.4 Chronic kidney disease, stage 4 (severe) (principal); D64.9 Anemia, unspecified; E55.9 Vitamin D deficiency, unspecified; N25.81 Secondary hyperparathyroidism of renal origin
CPT/HCPCS: 36415; 80069; 82306; 82728; 83540; 83550; 83970; 85027

== ENCOUNTER → 2021-10-03 16:57 | Outpatient (CLI) | payer MEDICARE, SELFPAY ==
[2021-10-03 17:37] LABS: Absolute Neutrophil Count 3.2 X10^3/uL (2.0-7.7); Basophil# 0.07 X10^3/uL; Basophil% 1.4 % (0-1); Eosinophil# 0.18 X10^3/uL; Eosinophils% 3.5 % (0-5); Hematocrit 39.2 % (40-54); Hemoglobin 12.9 g/dL (13.0-16.5); Lymphocyte % 19.3 % (19-41); Mean Corp Hgb Conc 32.9 g/dL (32-36); Mean Corpuscular Hgb 31.2 pg (27.0-32.0); Mean Corpuscular Volume 94.7 fL (80-94); Monocyte# 0.71 X10^3/uL; Monocyte% 13.7 % (0-10); NRBC Flagged by Analyzer 0 % (0-5); Neutrophil # 3.19 X10^3/uL (2.7-7.7); Neutrophil % 61.7 % (47-70); Platelet Count 233 K/mm3 (150-450); RBC Distribution Width CV 12.9 % (11.6-14.6); RBC Distribution Width SD 44.7 fl (35.1-43.9); Red Blood Count 4.14 M/mm3 (4.6-6.2); White Blood Count 5.2 K/mm3 (4.4-11.0)
[2021-10-03 18:10] LABS: Anion Gap 6 (5-15); BUN 34 mg/dL (7-18); BUN/Creat Ratio 9.5 RATIO (10-20); Calcium,Total 7.8 mg/dL (8.5-10.1); Chloride 116 mmol/L (98-107); Creatinine, Serum 3.59 mg/dL (0.70-1.30); EST Glomerular Filtration Rate 17 mL/min (>60); Est Glom Filt Rate - Afr Amer 21 mL/min (>60); Glucose 158 mg/dL (74-106); Magnesium 2.1 mg/dL (1.6-2.6); Potassium 4.4 mmol/L (3.5-5.1); Sodium Level 140 mmol/L (136-145); T4 Free Direct 1.08 ng/dL (0.76-1.46); Thyroid Stim Hormone (TSH) 1.31 uIU/mL (0.358-3.74)
[2021-10-03 18:14] LABS: BNP,B-Type NATRIURETIC PEPTIDE 1078.4 pg/mL (0-100)
== END ==
PROVIDERS: PCP Family Medicine; Referring Provider Nurse Practitioner Family; Visit Provider Nurse Practitioner Family
DX: R06.00 Dyspnea, unspecified (principal); Z95.5 Presence of coronary angioplasty implant and graft; Z95.1 Presence of aortocoronary bypass graft; I49.3 Ventricular premature depolarization; I10 Essential (primary) hypertension; Z86.79 Personal history of other diseases of the circulatory system; I25.10 Atherosclerotic heart disease of native coronary artery without angina pectoris
CPT/HCPCS: 36415; 80048; 83735; 83880; 84439; 84443; 85025

== ENCOUNTER → 2021-10-23 14:37 | Outpatient (CLI) | payer MEDICARE, SELFPAY ==
--- NOTE | 2021-10-23 14:39 | ECHOD_ITS ---
Reason For Study: DYSPNEA Procedure This was a 2D Doppler, Color Flow transthoracic echocardiogram. The exam was of adequate technical quality. Exam performed in department. Left Ventricle Normal LV size. Left ventricular systolic function is normal. The estimated ejection fraction is 60 %. There is evidence of diastolic dysfunction. No regional wall motion abnormalities noted. Right Ventricle Normal RV size. Normal systolic function. Atria The left atrium is mildly enlarged. Normal right atrium. No doppler evidence for ASD. Mitral Valve There is no mitral annular calcification. Normal mitral valve. Mild (1+) mitral valve insufficiency. Tricuspid Valve Normal tricuspid valve. Mild tricuspid valve insufficiency. Right ventricular systolic pressure estimated to be 35 mmHg. Aortic Valve Trisinus/trileaflet aortic valve. Mild diffuse aortic valve thickening. Mild diffuse aortic valve calcification. Aortic valve sclerosis/mild aortic valve stenosis. Trivial aortic valve insufficiency. Pulmonic Valve The pulmonic valve is not well visualized. Great Vessels Normal sized aortic root. Pericardium/Pleural No pericardial effusion. MMode/2D Measurements & Calculations LVIDd: 3.9 cm IVSd: 1.2 cm LVOT diam: 2.2 cm LVIDs: 2.4 cm LVPWd: 0.99 cm LVOT area: 3.6 cm2 RVDd: 4.4 cm FS: 38.7 % Ao root diam: 3.8 cm LAV(MOD-bp): 54.5 ml LVAd ap4: 28.7 cm2 LAV(MOD-bp) Indexed: 27.8 ml/m2 LVLd ap4: 7.8 cm LAV(MOD-sp2): 58.5 ml EDV(MOD-sp4): 84.7 ml LAV(MOD-sp4): 44.3 ml EDV(sp4-el): 89.3 ml LVAs ap4: 16.3 cm2 LVLs ap4: 6.1 cm ESV(MOD-sp4): 35.8 ml ESV(sp4-el): 36.8 ml EF(MOD-sp4): 57.8 % EF(sp4-el): 58.8 % LVAd ap2: 27.3 cm2 SV(MOD-sp4): 48.9 ml SV(MOD-sp2): 47.4 ml LVLd ap2: 7.9 cm EDV(MOD-sp2): 78.5 ml EDV(sp2-el): 80.0 ml LVAs ap2: 15.7 cm2 LVLs ap2: 6.8 cm ESV(MOD-sp2): 31.2 ml ESV(sp2-el): 30.8 ml EF(MOD-sp2): 60.3 % SV(sp4-el): 52.5 ml LA dimension(2D): 4.5 cm LA A4 area: 16.7 cm2 RA A4 area: 16.6 cm2 Doppler Measurements & Calculations MV E max edmundo: 62.1 cm/sec Lat Peak E' Edmundo: 9.7 cm/sec Med Peak E' Edmundo: 3.9 cm/sec MV A max edmundo: 72.3 cm/sec E/E' lat: 6.4 E/E' med: 15.8 MV E/A: 0.86 Ao V2 max: 194.0 cm/sec LV V1 max: 110.2 cm/sec SV(LVOT): 76.7 ml Ao max P.1 mmHg LV V1 max P.9 mmHg Ao V2 mean: 132.5 cm/sec LV V1 mean P.4 mmHg Ao mean P.9 mmHg LV V1 mean: 72.5 cm/sec Ao V2 VTI: 39.3 cm LV V1 VTI: 21.0 cm DAWSON(I,D): 2.0 cm2 DAWSON(V,D): 2.1 cm2 PA V2 max: 79.7 cm/sec TR max edmundo: 281.0 cm/sec TR max P.6 mmHg ECHO/Echo Complete Interpretation Summary Left ventricular systolic function is normal. The estimated ejection fraction is 60 %. The left atrium is mildly enlarged. Mild (1+) mitral valve insufficiency. Mild tricuspid valve insufficiency. Aortic valve sclerosis/mild aortic valve stenosis. Trivial aortic valve insufficiency. Right ventricular systolic pressure estimated to be 35 mmHg. There is evidence of diastolic dysfunction. Ordering Physician: Chirag Benitez Referring Physician: ALEX BOWERS Performed By: Иван, Mackenzie, RDCS, RVT
== END ==
LOC: CVS 14:37
PROVIDERS: PCP Family Medicine; Referring Provider Internal Medicine Cardiovascular Disease; Visit Provider Internal Medicine Cardiovascular Disease
DX: I25.10 Atherosclerotic heart disease of native coronary artery without angina pectoris (principal); R06.00 Dyspnea, unspecified; Z95.5 Presence of coronary angioplasty implant and graft; Z95.1 Presence of aortocoronary bypass graft; I49.3 Ventricular premature depolarization; I10 Essential (primary) hypertension; Z86.79 Personal history of other diseases of the circulatory system
CPT/HCPCS: 93306

== ENCOUNTER → 2021-11-07 16:13 | Outpatient (CLI) | payer MEDICARE, SELFPAY ==
[2021-11-07 17:28] LABS: Hematocrit 39.7 % (40-54); Hemoglobin 13.1 g/dL (13.0-16.5); Mean Corpuscular Hgb 31.6 pg (27.0-32.0); Mean Corpuscular Volume 95.7 fL (80-94); Mean Platelet Vol. 10.1 fl (6.2-12.0); Platelet Count 253 K/mm3 (150-450); RBC Distribution Width CV 13.2 % (11.6-14.6); RBC Distribution Width SD 46.1 fl (35.1-43.9); Red Blood Count 4.15 M/mm3 (4.6-6.2)
[2021-11-07 18:00] LABS: BUN 37 mg/dL (7-18); BUN/Creat Ratio 10.7 RATIO (10-20); Calcium,Total 7.5 mg/dL (8.5-10.1); Chloride 118 mmol/L (98-107); Creatinine, Serum 3.46 mg/dL (0.70-1.30); EST Glomerular Filtration Rate 18 mL/min (>60); Est Glom Filt Rate - Afr Amer 22 mL/min (>60); Ferritin 60 ng/mL (26-388); Glucose 119 mg/dL (74-106); Iron 76 ug/dL (65-175); Iron Binding Capacity,Total 273 ug/dL (250-450); PERCENT IRON SATURATION 27.8 % (15.0-55.0); Phosphorus 3.2 mg/dL (2.5-4.9); Potassium 4.3 mmol/L (3.5-5.1); Sodium Level 141 mmol/L (136-145)
[2021-11-07 18:05] LABS: Vitamin D,25 Hydroxy 31.7 ng/mL
[2021-11-07 18:40] LABS: Creat.Clear Total Volume 900 mL; Creatinine Clearance 16 ml/min (100-200); Creatinine Serum Creat 3.5 mg/dL (0.8-1.3); Creatinine Urine 86.4 mg/dL (NO RANGE EST.); EST Glomerular Filtration Rate 18 mL/min (>60); Est Glom Filt Rate - Afr Amer 22 mL/min (>60)
[2021-11-08 08:13] LABS: PTHIN 230.3 pg/mL (18.4-80.1)
== END ==
PROVIDERS: PCP Family Medicine; Visit Provider Internal Medicine Nephrology
DX: N18.4 Chronic kidney disease, stage 4 (severe) (principal); D64.9 Anemia, unspecified; E55.9 Vitamin D deficiency, unspecified; N25.81 Secondary hyperparathyroidism of renal origin
CPT/HCPCS: 36415; 80069; 81050; 82306; 82575; 82728; 83540; 83550; 83970; 85027

== ENCOUNTER 2022-01-29 15:15 | Outpatient (CLI) | payer MEDICARE, SELFPAY ==
[2022-01-29 16:28] LABS: Hematocrit 43.3 % (40-54); Mean Corp Hgb Conc 32.3 g/dL (32-36); Mean Platelet Vol. 10.3 fl (6.2-12.0); Platelet Count 256 K/mm3 (150-450); RBC Distribution Width CV 13.1 % (11.6-14.6); RBC Distribution Width SD 46.4 fl (35.1-43.9); Red Blood Count 4.51 M/mm3 (4.6-6.2); White Blood Count 5.3 K/mm3 (4.4-11.0)
[2022-01-29 17:07] LABS: Albumin, Serum 3.4 g/dL (3.2-5.0); BUN 34 mg/dL (7-18); BUN/Creat Ratio 10.8 RATIO (10-20); Calcium,Total 7.7 mg/dL (8.5-10.1); Chloride 112 mmol/L (98-107); Creatinine, Serum 3.15 mg/dL (0.70-1.30); EST Glomerular Filtration Rate 20 mL/min (>60); Est Glom Filt Rate - Afr Amer 24 mL/min (>60); Glucose 122 mg/dL (74-106); Phosphorus 2.7 mg/dL (2.5-4.9); Potassium 4.8 mmol/L (3.5-5.1); Sodium Level 140 mmol/L (136-145)
[2022-01-30 07:41] LABS: PTHIN 252.8 pg/mL (18.4-80.1)
== END 2022-01-29 23:59 | disposition home or self-care (01) ==
LOC: LAB 15:18
PROVIDERS: PCP Family Medicine; Referring Provider Internal Medicine Nephrology; Visit Provider Internal Medicine Nephrology
DX: N18.4 Chronic kidney disease, stage 4 (severe) (principal); N25.81 Secondary hyperparathyroidism of renal origin; D64.9 Anemia, unspecified
CPT/HCPCS: 36415; 80069; 83970; 85027

== ENCOUNTER → 2022-06-05 | Outpatient (CLI) | payer MEDICARE, SELFPAY ==
[2022-06-05 15:24] LABS: Hemoglobin 13.7 g/dL (13.0-16.5); Mean Corp Hgb Conc 33.4 g/dL (32-36); Mean Corpuscular Hgb 31.5 pg (27.0-32.0); Mean Corpuscular Volume 94.3 fL (80-94); Mean Platelet Vol. 9.6 fl (6.2-12.0); Platelet Count 206 K/mm3 (150-450); RBC Distribution Width CV 12.6 % (11.6-14.6); RBC Distribution Width SD 43.8 fl (35.1-43.9); Red Blood Count 4.35 M/mm3 (4.6-6.2); White Blood Count 4.3 K/mm3 (4.4-11.0)
[2022-06-05 15:51] LABS: Albumin, Serum 3.2 g/dL (3.2-5.0); BUN 38 mg/dL (7-18); BUN/Creat Ratio 12.1 RATIO (10-20); Calcium,Total 7.8 mg/dL (8.5-10.1); Chloride 112 mmol/L (98-107); Creatinine, Serum 3.13 mg/dL (0.70-1.30); EST Glomerular Filtration Rate 20 mL/min (>60); Est Glom Filt Rate - Afr Amer 24 mL/min (>60); Glucose 204 mg/dL (74-106); Phosphorus 2.9 mg/dL (2.5-4.9); Sodium Level 140 mmol/L (136-145)
[2022-06-05 15:55] LABS: PTHIN 202.4 pg/mL (18.4-80.1)
[2022-06-05 15:58] LABS: Vitamin D,25 Hydroxy 35.4 ng/mL
[2022-06-05 23:15] LABS: 24HR. UA Prot. Total Volume 1850 mL
[2022-06-06 06:39] LABS: Creat.Clear Total Volume 1850 mL; Creatinine Clearance 21 ml/min (100-200); Creatinine Serum Creat 3.1 mg/dL (0.8-1.3); EST Glomerular Filtration Rate 20 mL/min (>60); Est Glom Filt Rate - Afr Amer 20 mL/min (>60)
== END | disposition home or self-care (01) ==
PROVIDERS: PCP Family Medicine; Visit Provider Internal Medicine Nephrology
DX: N18.4 Chronic kidney disease, stage 4 (severe) (principal); N25.81 Secondary hyperparathyroidism of renal origin; E55.9 Vitamin D deficiency, unspecified; D64.9 Anemia, unspecified
CPT/HCPCS: 36415; 80069; 81050; 82306; 82570; 82575; 83970; 84156; 85027

== ENCOUNTER → 2022-09-10 | Outpatient (CLI) | payer MEDICARE, SELFPAY ==
[2022-09-10 13:11] LABS: Absolute Lymphocyte Count 1.11 X10^3/uL (0.83-4.51); Absolute Neutrophil Count 3.4 X10^3/uL (2.0-7.7); Basophil# 0.06 X10^3/uL; Basophil% 1.1 % (0-1); Eosinophil# 0.29 X10^3/uL; Eosinophils% 5.4 % (0-5); Hematocrit 44.7 % (40-54); Hemoglobin 14.2 g/dL (13.0-16.5); Lymphocyte # 1.11 X10^3/ul (0.83-4.51); Lymphocyte % 20.8 % (19-41); Mean Corp Hgb Conc 31.8 g/dL (32-36); Mean Corpuscular Hgb 31.3 pg (27.0-32.0); Mean Corpuscular Volume 98.7 fL (80-94); Mean Platelet Vol. 10.3 fl (6.2-12.0); Monocyte# 0.44 X10^3/uL; Monocyte% 8.3 % (0-10); NRBC Flagged by Analyzer 0 % (0-5); Neutrophil # 3.41 X10^3/uL (2.7-7.7); Platelet Count 259 K/mm3 (150-450); RBC Distribution Width CV 12.8 % (11.6-14.6); RBC Distribution Width SD 46.3 fl (35.1-43.9); Red Blood Count 4.53 M/mm3 (4.6-6.2); White Blood Count 5.3 K/mm3 (4.4-11.0)
[2022-09-10 13:45] LABS: Albumin, Serum 3.6 g/dL (3.2-5.0); BUN 33 mg/dL (7-18); BUN/Creat Ratio 10.5 RATIO (10-20); Chloride 113 mmol/L (98-107); Creatinine, Serum 3.15 mg/dL (0.70-1.30); EST Glomerular Filtration Rate 20 mL/min (>60); Est Glom Filt Rate - Afr Amer 24 mL/min (>60); Glucose 131 mg/dL (74-106); Potassium 4.4 mmol/L (3.5-5.1); Sodium Level 143 mmol/L (136-145)
[2022-09-10 13:47] LABS: PTHIN 215.3 pg/mL (18.4-80.1)
== END | disposition home or self-care (01) ==
LOC: POLAB3 11:30
PROVIDERS: PCP Family Medicine; Visit Provider Internal Medicine Nephrology
DX: N18.4 Chronic kidney disease, stage 4 (severe) (principal); N25.81 Secondary hyperparathyroidism of renal origin; D64.9 Anemia, unspecified
CPT/HCPCS: 36415; 80069; 83970; 85025

== ENCOUNTER → 2022-12-04 | Outpatient (CLI) | payer MEDICARE, SELFPAY ==
[2022-12-04 17:53] LABS: Absolute Lymphocyte Count 1.41 X10^3/uL (0.83-4.51); Absolute Neutrophil Count 3.3 X10^3/uL (2.0-7.7); Basophil# 0.06 X10^3/uL; Basophil% 1.1 % (0-1); Eosinophil# 0.31 X10^3/uL; Eosinophils% 5.4 % (0-5); Hematocrit 41.3 % (40-54); Hemoglobin 13.7 g/dL (13.0-16.5); Lymphocyte # 1.41 X10^3/ul (0.83-4.51); Lymphocyte % 24.8 % (19-41); Mean Corp Hgb Conc 33.2 g/dL (32-36); Mean Corpuscular Hgb 31.7 pg (27.0-32.0); Mean Corpuscular Volume 95.6 fL (80-94); Mean Platelet Vol. 10.2 fl (6.2-12.0); Monocyte# 0.58 X10^3/uL; Monocyte% 10.2 % (0-10); NRBC Flagged by Analyzer 0 % (0-5); Neutrophil # 3.31 X10^3/uL (2.7-7.7); Neutrophil % 58.1 % (47-70); Platelet Count 259 K/mm3 (150-450); RBC Distribution Width CV 12.6 % (11.6-14.6); RBC Distribution Width SD 44.7 fl (35.1-43.9); Red Blood Count 4.32 M/mm3 (4.6-6.2); White Blood Count 5.7 K/mm3 (4.4-11.0)
[2022-12-04 18:03] LABS: Anion Gap 10 (5-15); BUN 43 mg/dL (7-18); BUN/Creat Ratio 14.4 RATIO (10-20); Calcium,Total 7.9 mg/dL (8.5-10.1); Chloride 116 mmol/L (98-107); Cholesterol 127 mg/dL (200); Creatinine, Serum 2.99 mg/dL (0.70-1.30); EST Glomerular Filtration Rate 21 mL/min (>60); Est Glom Filt Rate - Afr Amer 26 mL/min (>60); Glucose 134 mg/dL (74-106); High Density Lipoprotein 42 mg/dL; Potassium 4.5 mmol/L (3.5-5.1); Sodium Level 143 mmol/L (136-145); Triglycerides 95 mg/dL; Very Low Density Lipoprotein 19 mg/dL (5-40)
== END | disposition home or self-care (01) ==
PROVIDERS: PCP Family Medicine; Visit Provider Family Medicine
DX: I10 Essential (primary) hypertension (principal); R06.02 Shortness of breath
CPT/HCPCS: 36415; 80048; 80061; 85025

== ENCOUNTER → 2023-02-25 | Outpatient (CLI) | payer MEDICARE, MEDICAID, SELFPAY ==
[2023-02-25 16:29] LABS: Hemoglobin 13.5 g/dL (13.0-16.5); Mean Corp Hgb Conc 32.9 g/dL (32-36); Mean Corpuscular Hgb 31.3 pg (27.0-32.0); Mean Corpuscular Volume 95.1 fL (80-94); Mean Platelet Vol. 10.1 fl (6.2-12.0); Platelet Count 234 K/mm3 (150-450); RBC Distribution Width CV 12.6 % (11.6-14.6); RBC Distribution Width SD 43.9 fl (35.1-43.9); Red Blood Count 4.31 M/mm3 (4.6-6.2); White Blood Count 6.2 K/mm3 (4.4-11.0)
[2023-02-25 17:02] LABS: Albumin, Serum 3.1 g/dL (3.2-5.0); BUN 32 mg/dL (7-18); BUN/Creat Ratio 10.5 RATIO (10-20); Calcium,Total 7.8 mg/dL (8.5-10.1); Chloride 115 mmol/L (98-107); Creatinine, Serum 3.05 mg/dL (0.70-1.30); EST Glomerular Filtration Rate 21 mL/min (>60); Est Glom Filt Rate - Afr Amer 25 mL/min (>60); Glucose 161 mg/dL (74-106); Phosphorus 2.7 mg/dL (2.5-4.9); Potassium 4.3 mmol/L (3.5-5.1); Sodium Level 141 mmol/L (136-145)
[2023-02-26 08:09] LABS: PTHIN 162.4 pg/mL (18.4-80.1)
== END | disposition home or self-care (01) ==
LOC: LAB 16:10
PROVIDERS: PCP Family Medicine; Referring Provider Internal Medicine Nephrology; Visit Provider Internal Medicine Nephrology
DX: N18.4 Chronic kidney disease, stage 4 (severe) (principal); N25.81 Secondary hyperparathyroidism of renal origin; D64.9 Anemia, unspecified
CPT/HCPCS: 36415; 80069; 83970; 85027

== ENCOUNTER → 2023-07-03 | Outpatient (CLI) | payer MEDICARE, MEDICAID, SELFPAY ==
[2023-07-03 18:19] LABS: Anion Gap 6 (5-15); BUN 31 mg/dL (7-18); BUN/Creat Ratio 10.6 RATIO (10-20); Chloride 110 mmol/L (98-107); Cholesterol 113 mg/dL (200); Creatinine, Serum 2.92 mg/dL (0.70-1.30); EST Glomerular Filtration Rate 22 mL/min (>60); Est Glom Filt Rate - Afr Amer 26 mL/min (>60); Glucose 122 mg/dL (74-106); High Density Lipoprotein 40 mg/dL; Potassium 4.2 mmol/L (3.5-5.1); Sodium Level 140 mmol/L (136-145); Triglycerides 83 mg/dL; Very Low Density Lipoprotein 17 mg/dL (5-40)
== END | disposition home or self-care (01) ==
LOC: MFPLAB 16:21
PROVIDERS: PCP Family Medicine; Visit Provider Family Medicine
DX: I10 Essential (primary) hypertension (principal); E78.00 Pure hypercholesterolemia, unspecified; N40.0 Benign prostatic hyperplasia without lower urinary tract symptoms; Z12.5 Encounter for screening for malignant neoplasm of prostate
CPT/HCPCS: 36415; 80048; 80061; 84153; G0103

== ENCOUNTER → 2023-09-24 | Outpatient (CLI) | payer MEDICARE, MEDICAID, SELFPAY ==
[2023-09-24 16:55] LABS: Hematocrit 35.6 % (40-54); Hemoglobin 10.8 g/dL (13.0-16.5); Mean Corp Hgb Conc 30.3 g/dL (32-36); Mean Corpuscular Hgb 26.3 pg (27.0-32.0); Mean Corpuscular Volume 86.6 fL (80-94); Mean Platelet Vol. 10.3 fl (6.2-12.0); Platelet Count 338 K/mm3 (150-450); RBC Distribution Width CV 13.8 % (11.6-14.6); Red Blood Count 4.11 M/mm3 (4.6-6.2); White Blood Count 7.4 K/mm3 (4.4-11.0)
[2023-09-24 17:50] LABS: Albumin, Serum 3.4 g/dL (3.2-5.0); BUN 37 mg/dL (7-18); BUN/Creat Ratio 11.4 RATIO (10-20); Calcium,Total 7.9 mg/dL (8.5-10.1); Chloride 112 mmol/L (98-107); Creatinine, Serum 3.25 mg/dL (0.70-1.30); EST Glomerular Filtration Rate 19 mL/min (>60); Est Glom Filt Rate - Afr Amer 23 mL/min (>60); Glucose 150 mg/dL (74-106); Phosphorus 2.5 mg/dL (2.5-4.9); Potassium 4.4 mmol/L (3.5-5.1); Sodium Level 142 mmol/L (136-145)
== END | disposition home or self-care (01) ==
LOC: LAB 16:10
PROVIDERS: PCP Family Medicine; Visit Provider Internal Medicine Nephrology
DX: N18.4 Chronic kidney disease, stage 4 (severe) (principal)
CPT/HCPCS: 36415; 80069; 85027